=== PATIENT | female | born 1930 | race Hispanic/Latino ===

== ENCOUNTER 2018-04-29 13:45 | Inpatient (IN) | payer MEDICARE ==
[2018-04-29] MEDS ORDERED: Sodium Chloride 0.9% 500 ML IV STA (14:24)
--- NOTE | 2018-04-29 14:49 | RAD ---
Date of service: 04/29/2018 HISTORY: fatigue COMPARISON: No prior. FINDINGS: LUNGS: No active pulmonary disease. PLEURA: No significant pleural effusion identified, no pneumothorax apparent. CARDIOVASCULAR: Severe cardiomegaly and moderate vascular congestion OSSEOUS STRUCTURES: No significant abnormalities. VISUALIZED UPPER ABDOMEN: Normal. OTHER FINDINGS: None. IMPRESSION: Severe cardiomegaly and moderate vascular congestion
--- NOTE | 2018-04-29 14:50 | ED PDOC ---
Arrival/HPI - General Chief Complaint: Altered Mental Status Time Seen by Provider: 04/29/18 14:11 Historian: Patient - History of Present Illness Narrative History of Present Illness (Text): 04/29/18 14:50 87 year old female, with no significant past medical history, presents to the emergency department via EMS complaining of decreased PO intake since past week. As per EMS, patient pressed her medic/life support alert and was found in bed covered in feces in a dirty home. Patient states she cannot take care of herself and has been experiencing decreased appetite prompting her to present to the emergency department for medical evaluation. Patient informs compliance with her medication. Patient is a poor historian but denies any chest pain, shortness of breath, abdominal pain, headache or fall. ROS limited secondary to poor history provided by patient. PMD: Dr. Purvis 04/29/18 15:52 Time/Duration: < week Symptom Onset: Gradual Symptom Course: Unchanged Activities at Onset: Light Context: Home Past Medical History - Provider Review Nursing Documentation Reviewed: Yes - Infectious Disease Hx of Infectious Diseases: None - Reproductive Menopause: Yes - Psychiatric Hx Substance Use: No - Anesthesia Hx Anesthesia: No Family/Social History - Physician Review Nursing Documentation Reviewed: Yes Family/Social History: No Known Family HX Smoking Status: Unknown If Ever Smoked Hx Alcohol Use: No Hx Substance Use: No Allergies/Home Meds Allergies/Adverse Reactions: Allergies No Known Allergies Allergy (Unverified 04/29/18 14:20) Review of Systems - Review of Systems Systems not reviewed;Unavailable: Other (Poor historian) Respiratory: absent: SOB Cardiovascular: absent: Chest Pain Gastrointestinal: Appetite Changes. absent: Abdominal Pain Neurological: absent: Headache Physical Exam Vital Signs Reviewed: Yes Vital Signs Temp Pulse Resp BP Pulse Ox 04/29/18 19:28 128 H 18 155/71 H 04/29/18 14:14 97.5 F L 101 H 18 174/102 H 96 Temperature: Afebrile Blood Pressure: Hypertensive Pulse: Tachycardic Respiratory Rate: Normal Appearance: Positive for: Unkept Pain Distress: None Mental Status: Positive for: Alert and Oriented X 3 - Systems Exam Head: Present: Atraumatic, Normocephalic Pupils: Present: PERRL Extroacular Muscles: Present: EOMI Conjunctiva: Present: Normal Mouth: Present: Dry Neck: Present: Normal Range of Motion Respiratory/Chest: Present: Clear to Auscultation, Decreased Breath Sounds ( decreased air entry). No: Respiratory Distress, Accessory Muscle Use Cardiovascular: Present: Normal S1, S2, Irregular Rhythm (irregularly irregular) . No: Murmurs Abdomen: No: Tenderness, Distention, Peritoneal Signs Back: Present: Normal Inspection Upper Extremity: Present: Normal Inspection. No: Cyanosis, Edema Lower Extremity: Present: Edema (2+ pitting edema bilaterally with erythema) Neurological: Present: GCS=15, CN II-XII Intact, Speech Normal Skin: Present: Warm, Dry, Normal Color. No: Rashes Psychiatric: Present: Alert, Oriented x 3, Normal Insight, Normal Concentration Medical Decision Making ED Course and Treatment: 04/29/18 14:59 Impression: 87 year old female presents to the emergency department complaining of decreased PO intake. Plan: -- ABG -- CT of Head -- Labs -- CXR -- IV Fluids -- Blood Culture -- Urine Culture -- UA -- Reassess and disposition Prior Visits: Notes and results from previous visits were reviewed. IVF ordered because patient appears dehydrated clinically and admits to decreased po intake. Progress Notes: 04/29/18 15:00 ABG shows ph 7.32 with pc02 63. Lethargic but arousable. Likely chronic. Chest X-ray reviewed by radiologist, shows severe cardiomegaly and moderate vascular congestion. 04/29/18 15:21 CT of head reviewed by radiologist, shows moderate atrophy. No acute findings 04/29/18 16:02 Lasix ordered. Heart rate increasing and cardizem ordered. 04/29/18 19:42 EKG shows afrib at 132bpm with non-specific st changes. No prior for comparison. Trop 0.07. Aspirin given rectally. 04/29/18 19:43 04/29/18 19:50 Will need SW due to inability to take care of herself. 04/29/18 19:53 Spoke to resident non destructive testing scientist and Dr. Hernandez, who are aware and agree with Emergency department management plan, accept patient under Dr. Hernandez's service. 04/29/18 21:32 - Lab Interpretations Lab Results: 04/29/18 18:12 04/29/18 17:57 Lab Results 04/29/18 19:15: Urine Color Brown, Urine Appearance Cloudy, Urine pH 6.5, Ur Specific [place] >= 1.030, Urine Protein >=300 H, Urine Glucose (UA) Negative, Urine Ketones Trace H, Urine Blood Large H, Urine Nitrate Positive H, Urine Bilirubin Moderate H, Urine Urobilinogen 1.0 H, Ur Leukocyte Esterase Trace H, Urine RBC Tntc, Urine WBC 1 - 3, Ur Epithelial Cells 0 - 2, Urine Bacteria Mod 04/29/18 18:56: Digoxin 0.9 04/29/18 18:56: PT 48.2 H, INR 4.11 H*, APTT 45.7 H 04/29/18 18:12: WBC 10.5, RBC 5.01, Hgb 13.8, Hct 43.5, MCV 86.8, MCH 27.5, MCHC 31.7, RDW 16.6 H, Plt Count 203, MPV 10.1, Gran % 85.4 H, Lymph % (Auto) 4.8 L, [place] % (Auto) 9.6 H, Eos % (Auto) 0.1 L, Baso % (Auto) 0.1, Gran # 8.97 H , Lymph # (Auto) 0.5 L, [place] # (Auto) 1.0 H, Eos # (Auto) 0.0, Baso # (Auto) 0.01, Neutrophils % (Manual) 85 H, Band Neutrophils % 2, Lymphocytes % (Manual) 8 L, Monocytes % (Manual) 3, Nucleated RBC % 2, Platelet Evaluation Normal, Anisocytosis (manual) 1+ 04/29/18 17:57: Free T4 0.96, TSH 3rd Generation 1.33 04/29/18 17:57: Sodium 139, Potassium 5.2 H, Chloride 104, Carbon Dioxide 29, Anion Gap 11, BUN 37 H, Creatinine 0.8, Est GFR ( Amer) > 60, Est GFR ( Non-Af Amer) > 60, Random Glucose 109, Calcium 8.8, Phosphorus 4.8 H, Magnesium 1.9, Total Bilirubin 0.9, AST 40 H, ALT 31, Alkaline Phosphatase 74, Total Creatine Kinase 42, Troponin I 0.07, NT-Pro-B Natriuret Pep 5110 H, Total Protein 6.4, Albumin 3.4, Globulin 3.0, Albumin/Globulin Ratio 1.1 04/29/18 15:35: pCO2 63 H, pO2 85.0, HCO3 32.5 H, ABG pH 7.32 L, ABG Total CO2 34.4 H, ABG O2 Saturation 97.7, ABG O2 Content 19.1, ABG Base Excess 4.3 H, ABG Hemoglobin 14.4, ABG Carboxyhemoglobin 3.0 H, POC ABG HHb (Measured) 2.2, ABG Methemoglobin 0.8, ABG O2 Capacity 19.5, Hgb O2 Saturation 94.0 L, FiO2 36.0 04/29/18 14:50: POC Glucose (mg/dL) 138 H - RAD Interpretation Radiology Orders: 04/29/18 14:20 CHEST PORTABLE [RAD] Stat 04/29/18 14:24 HEAD W/O CONTRAST [CT] Stat - Medication Orders Current Medication Orders: Haloperidol Lactate (Haldol) 2 mg IM Q4 PRN; Protocol PRN Reason: Agitation Sodium Chloride (Sodium Chloride 0.9%) 1,000 mls @ 50 mls/hr IV .Q20H ANDRA Ceftriaxone Sodium (Rocephin 1 Gram Ivpb) 1 gm in 100 mls @ 100 mls/hr IVPB DAILY ANDRA PRN Reason: Protocol Stop: 05/05/18 10:01 Discontinued Medications Aspirin (Aspirin Chewable) 81 mg PO STAT STA Stop: 04/29/18 15:20 Last Admin: 04/29/18 19:20 Dose: Not Given Non-Admin Reason: NPO Aspirin (Aspirin Chewable) 243 mg PO STAT STA Stop: 04/29/18 18:56 Last Admin: 04/29/18 19:21 Dose: Not Given Non-Admin Reason: NPO Aspirin (Aspirin Supp) 300 mg RC STAT STA Stop: 04/29/18 19:22 Diltiazem HCl (Cardizem) 10 mg IVP STAT STA Stop: 04/29/18 19:30 Furosemide (Lasix) 80 mg IVP STAT STA Stop: 04/29/18 18:54 Sodium Chloride (Sodium Chloride 0.9%) 500 mls @ 999 mls/hr IV .Q31M STA Stop: 04/29/18 14:54 Last Admin: 04/29/18 15:00 Dose: 999 mls/hr eMAR Start Stop Document 04/29/18 15:00 HI (Rec: 04/29/18 19:20 OH [id number]) Intravenous Solution Start Date 04/29/18 Start Time 15:00 Ceftriaxone Sodium (Rocephin 1 Gram Ivpb) 1 gm in 100 mls @ 200 mls/hr IVPB STAT STA Stop: 04/29/18 20:23 - Scribe Statement The provider has reviewed the documentation as recorded by the Scribe Eligio Martins. All medical record entries made by the Scribe were at my direction and personally dictated by me. I have reviewed the chart and agree that the record accurately reflects my personal performance of the history, physical exam, medical decision making, and the department course for this patient. I have also personally directed, reviewed, and agree with the discharge instructions and disposition. Disposition/Present on Arrival - Present on Arrival Any Indicators Present on Arrival: No History of DVT/PE: No History of Uncontrolled Diabetes: No Urinary Catheter: No History of Decub. Ulcer: No History Surgical Site Infection Following: None - Disposition Have Diagnosis and Disposition been Completed?: Yes Diagnosis: CHF (congestive heart failure), Rapid atrial fibrillation, UTI (urinary tract infection), Altered mental status, Failure to thrive, Cellulitis, Edema leg Disposition: HOSPITALIZED Disposition Time: 19:50 Patient Plan: Admission Patient Problems: Current Active Problems Problem Status Onset CHF (congestive heart failure) Acute Rapid atrial fibrillation Acute UTI (urinary tract infection) Acute Altered mental status Acute Failure to thrive Acute Cellulitis Acute Edema leg Acute Condition: FAIR
--- NOTE | 2018-04-29 15:12 | CT ---
Date of service: 04/29/2018 PROCEDURE: CT HEAD WITHOUT CONTRAST. HISTORY: lethargy COMPARISON: None available. TECHNIQUE: Axial computed tomography images were obtained through the head/brain without intravenous contrast. Radiation dose: Total exam DLP = 869 mGy-cm. This CT exam was performed using one or more of the following dose reduction techniques: Automated exposure control, adjustment of the mA and/or kV according to patient size, and/or use of iterative reconstruction technique. FINDINGS: HEMORRHAGE: No intracranial hemorrhage. BRAIN: No mass effect or edema. Moderate atrophy. No acute findings VENTRICLES: Unremarkable. No hydrocephalus. CALVARIUM: Unremarkable. PARANASAL SINUSES: Unremarkable as visualized. No significant inflammatory changes. MASTOID AIR CELLS: Unremarkable as visualized. No inflammatory changes. OTHER FINDINGS: None. IMPRESSION: Moderate atrophy. No acute findings
[2018-04-29 15:45] LABS: ARTERIAL BLOOD GAS HCO3 32.5 mmol/L (21-28); ARTERIAL BLOOD GAS HEMOGLOBIN 14.4 g/dL (11.7-17.4); ARTERIAL BLOOD GAS O2 CAPACITY 19.5 mL/dl (16-24); ARTERIAL BLOOD GAS O2 CONTENT 19.1 ML/dl (15-23); ARTERIAL BLOOD GAS O2 SAT 97.7 % (95-98); ARTERIAL BLOOD GAS PCO2 63 mm/Hg (35-45); ARTERIAL BLOOD GAS PH 7.32 (7.35-7.45); ARTERIAL BLOOD GAS TCO2 34.4 mmol.L (22-28)
[2018-04-29 18:16] LABS: BASO # 0.01 K/mm3 (0.0-2.0); BASO % 0.1 % (0.0-3.0); EOS % 0.1 % (1.5-5.0); GRAN # 8.97 (1.4-6.5); GRAN % 85.4 % (50.0-68.0); HEMOGLOBIN 13.8 g/dL (12.0-16.0); LYMPH # 0.5 (1.2-3.4); LYMPH % 4.8 % (22.0-35.0); MEAN CELL VOLUME 86.8 fl (80.0-105.0); MEAN CORPUSCULAR HEMOGLOBIN 27.5 pg (25.0-35.0); MEAN CORPUSCULAR HGB CONC 31.7 g/dl (31.0-37.0); MEAN PLATELET VOLUME 10.1 fl (7.0-11.0); MONO % 9.6 % (1.0-6.0); PLATELET COUNT 203 10^3/uL (120.0-450.0); RBC 5.01 10^6/uL (3.5-6.1); RED CELL DISTRIBUTION WIDTH 16.6 % (11.5-14.5); WHITE BLOOD COUNT 10.5 10^3/ul (4.5-11.0)
[2018-04-29 18:36] LABS: ALB/GLOB RATIO 1.1 (1.1-1.8); ALBUMIN 3.4 g/dL (3.0-4.8); ALT/SGPT 31 U/L (7-56); AST/SGOT 40 U/L (14-36); BLOOD UREA NITROGEN 37 mg/dL (7-21); CALCIUM 8.8 mg/dL (8.4-10.5); GFR NON-AFRICAN AMERICAN > 60
[2018-04-29 18:48] LABS: B-TYPE NATRIURETIC PEPTIDE 5110 pg/mL (0-450); TROPONIN I 0.07 ng/mL
[2018-04-29 18:53] LABS: FREE T4 0.96 ng/dL (0.78-2.19)
[2018-04-29 18:55] LABS: BAND 2 % (0-2); LYMPHOCYTE 8 % (22.0-35.0); NUCLEATED RED BLOOD CELL 2 %; PLATELET ESTIMATE NORMAL (NORMAL)
[2018-04-29 18:56] LABS: ANISOCYTOSIS 1+; MONOCYTE 3 % (1.0-6.0); NEUTROPHIL 85 % (50.0-70.0)
[2018-04-29 19:27] LABS: PARTIAL THROMBOPLASTIN TIME 45.7 Seconds (25.1-36.5); PROTHROMBIN TIME 48.2 SECONDS (9.4-12.5)
[2018-04-29 19:30] LABS: PH,URINE 6.5 (4.7-8.0); URINE BILIRUBIN MODERATE (NEGATIVE); URINE BLOOD LARGE (NEGATIVE); URINE GLUCOSE (UA) NEGATIVE (NEGATIVE); URINE LEUKOCYTE ESTERASE TRACE Leu/uL (NEGATIVE); URINE PROTEIN >=300 mg/dL (<30 mg/dL)
[2018-04-29 19:39] LABS: INR 4.11
[2018-04-29] MEDS ORDERED: cefTRIAXone (Rocephin) 1 gm Inj IVPB STA (19:52)
[2018-04-29 19:54] LABS: URINE APPEARANCE CLOUDY (CLEAR); URINE COLOR BROWN (YELLOW)
[2018-04-29] MEDS ORDERED: cefTRIAXone 1 GM/100 ML BAG IVPB STA (19:54)
[2018-04-29 19:55] LABS: URINE RBC TNTC /hpf (0-2)
[2018-04-29 19:56] LABS: URINE BACTERIA MOD (NEG); URINE EPITHELIAL CELLS 0 - 2 /hpf (0-5)
[2018-04-29] MEDS ORDERED: Sodium Chloride 0.9% 1,000 ML IV SCH (21:15)
[2018-04-29] MEDS ORDERED: Digoxin 500 mcg/2ml (0.5 mg/2ml) Inj IVP STA (22:50)
--- NOTE | 2018-04-30 01:29 | CP.PCM.HP ---
<Taylor Portillo - Last Filed: 04/30/18 04:19> History of Present Illness - History of Present Illness History of Present Illness: Taylor Portillo, PGY-1 H&P for Hospitalist Service This is a 87 year old female presenting to to the ED via EMS with AMS and decreased oral take. Per EMS, patient pressed life support alert and EMS responded and found patient to be covered in feces. Patient lives by herself. She is currently altered and is unable to provide any history at this time. No previous medical history is available in chart review. 12 point ROS unavailable due to lethargic but arousable patient. In ED, EKG showed afib at 132bpm with no ST changes. No prior EKG available for comparison. Trop 0.07. Aspirin given rectally. ABG shows pH 7.32 with pC02 63. CXR showed severe cardiomegaly and moderate vascular congestion. CT of head shows moderate atrophy. No acute findings. Cardizem given for elevated HR. Lasix and digoxin given. BNP was 5110. PT/INR was 48.2/4.11. U/A positive for leuk esterase and nitrates; given rocephin. [facility] PMD: Dr. Purvis Present on Admission - Present on Admission Any Indicators Present on Admission: No Past Patient History - Infectious Disease Hx of Infectious Diseases: None - Past Social History Smoking Status: Unknown If Ever Smoked - PSYCHIATRIC Hx Substance Use: No - ANESTHESIA Hx Anesthesia: No Meds Allergies/Adverse Reactions: Allergies Allergy/AdvReac Type Severity Reaction Status Date / Time No Known Allergies Allergy Unverified 04/29/18 14:20 Physical Exam - Constitutional Appears: Unkempt Additional comments: lethargic - Head Exam Head Exam: ATRAUMATIC, NORMAL INSPECTION - Eye Exam Eye Exam: EOMI Pupil Exam: PERRL - ENT Exam ENT Exam: Mucous Membranes Dry - Respiratory Exam Respiratory Exam: Decreased Breath Sounds, Wheezes. absent: Accessory Muscle Use, Respiratory Distress - Cardiovascular Exam Cardiovascular Exam: Tachycardia, Irregular Rhythm, +S1, +S2 - GI/Abdominal Exam GI & Abdominal Exam: Normal Bowel Sounds. absent: Firm, Guarding - Extremities Exam Extremities exam: Positive for: normal inspection. Negative for: calf tenderness - Neurological Exam Neurological exam: Altered Additional comments: not oriented to person, time or place. Arousable but drowsy/lethargic - Skin Skin Exam: Dry, Normal Color, Warm Results - Vital Signs Recent Vital Signs: Last Vital Signs Temp 97.5 F L 04/29/18 14:14 Pulse 99 H 04/29/18 22:31 Resp 20 04/29/18 22:31 BP 130/89 04/29/18 22:31 Pulse Ox 96 04/29/18 22:31 - Labs Result Diagrams: 04/29/18 18:12 04/29/18 17:57 Labs: Laboratory Results - last 24 hr 04/29/18 22:43 Grp A Beta Strep Ag Negative Assessment & Plan - Assessment and Plan (Free Text) Assessment: This is a 87 year old female presenting to to the ED via EMS with AMS and decreased oral take. Per EMS, patient pressed life support alert and EMS responded and found patient to be covered in feces. Will be admitted to tele for AMS 2/2 afib with RVR vs CHF exacerbation vs dehydration vs UTI. Will need records from Dr. Purvis's office in AM. Plan: AMS -2/2 afib with RVR vs CHF exacerbation vs dehydration vs UTI -aspiration precautions -carlos catheter -haloperidol prn for agitation -restraints for pulling out peripheral lines -swallow/speech eval -stict I/O -fall precautions -P.T. pending CHF exacerbation -CXR shows severe cardiomegaly, moderate vascular congestion -BNP is 5110 -echo pending -received 80mg lasix in ED -lasix 40mg IVP daily Afib with RVR -EKG on admission showed afib at 132bpm with no ST changes -cardizem q6 prn, currently not tachy -unable to calculate CHADS-Vasc score with unknown history and altered patient -patient on coumadin at home per patient -PT/INR is 48.2/4.11. Supratheruapeutic -digoxin level WNL -will receive digoxin in AM -troponin trending Dehydration -light hydration with NS @50cc UTI -positive leuk esterase, nitrates, protein, trace ketones, large blood -currently on recephin -urine, blood, throat culture -patient will be advised to follow up abnormal U/A with urologist Failure to thrive -patient lives by herself, unable to care for herself -social consult PPX with pepcid. Hold DVT ppx for supratherapeutic INR Patient seen and case discussed with attending, Taylor Fournier, PGY-1 <Rajinder Pichardo - Last Filed: 04/30/18 06:13> Results - Vital Signs Recent Vital Signs: Last Vital Signs Temp 97.3 F L 04/30/18 00:53 Pulse 118 H 04/30/18 02:00 Resp 20 04/30/18 00:53 BP 134/71 04/30/18 00:53 Pulse Ox 96 04/29/18 22:31 - Labs Result Diagrams: 04/29/18 18:12 04/29/18 17:57 Labs: Laboratory Results - last 24 hr 04/29/18 04/30/18 22:43 01:45 Troponin I 0.06 Grp A Beta Strep Ag Negative Attending/Attestation - Attestation I have personally seen and examined this patient.: Yes I have fully participated in the care of the patient.: Yes I have reviewed all pertinent clinical information: Yes Notes (Text): hold lasix for 24 to 48 hours. Fluid retriction to 2000 cc/24 hours 04/30/18 06:12
[2018-04-30 02:56] VITALS: BMI 30.9
[2018-04-30] MEDS ORDERED: Digoxin 500 mcg/2ml (0.5 mg/2ml) Inj IVP ONE (08:00)
[2018-04-30 09:16] LABS: EOS % 0.3 % (1.5-5.0); GRAN # 7.62 (1.4-6.5); GRAN % 84.7 % (50.0-68.0); HEMOGLOBIN 12.9 g/dL (12.0-16.0); LYMPH # 0.8 (1.2-3.4); MEAN CELL VOLUME 88.1 fl (80.0-105.0); MEAN CORPUSCULAR HGB CONC 30.7 g/dl (31.0-37.0); MEAN PLATELET VOLUME 9.9 fl (7.0-11.0); MONO # 0.5 (0.1-0.6); RBC 4.77 10^6/uL (3.5-6.1); RED CELL DISTRIBUTION WIDTH 16.8 % (11.5-14.5)
[2018-04-30 09:20] LABS: ALBUMIN 3.1 g/dL (3.0-4.8); BLOOD UREA NITROGEN 36 mg/dL (7-21); CALCIUM 8.4 mg/dL (8.4-10.5); GFR NON-AFRICAN AMERICAN > 60; HDL CHOLESTEROL 27 mg/dL (29-60)
[2018-04-30 09:22] LABS: ALT/SGPT 30 U/L (7-56); AST/SGOT 38 U/L (14-36)
[2018-04-30 09:30] LABS: PROTHROMBIN TIME 49.2 SECONDS (9.4-12.5)
[2018-04-30 09:31] LABS: LDL CHOLESTEROL 60 mg/dL (0-129)
[2018-04-30 09:34] LABS: TROPONIN I 0.07 ng/mL
[2018-04-30] MEDS: cefTRIAXone 1 gm 1 GM/100 ML BAG IVPB SCH (09:36)
[2018-04-30 09:50] LABS: INR 4.16
[2018-04-30] MEDS ORDERED: Metoprolol 1 mg/ml Inj IVP PRN (11:05)
[2018-04-30] MEDS: diltiaZEM IVPB 100mg in NS 100 ML IV PRN (12:04)
--- NOTE | 2018-04-30 14:02 | CARD ---
APPROVED REPORT Date of service: 04/29/2018 EKG Measurement Heart [id number] <Conclusion> Poor data quality, interpretation may be adversely affected Atrial fibrillation with rapid ventricular response RSR' or QR pattern in V1 suggests right ventricular conduction delay ST & T wave abnormality, consider inferolateral ischemia or digitalis effect Abnormal ECG
--- NOTE | 2018-04-30 14:16 | CARD ---
APPROVED REPORT Date of service: 04/30/2018 EXAM: Two-dimensional and M-mode echocardiogram with Doppler and color Doppler. INDICATION Atrial Fibrillation 2D DIMENSIONS Left Atrium (2D)4.3 (1.6-4.0cm)IVSd1.5 (0.7-1.1cm) LVDd3.8 (3.9-5.9cm)PWd1.1 (0.7-1.1cm) LVDs2.4 (2.5-4.0cm)FS (%) 35.8 % LVEF (%)66.1 (>50%) M-Mode DIMENSIONS Aortic Root3.00 (2.2-3.7cm)Aortic Cusp Exc.0.40 (1.5-2.0cm) Aortic Valve AoV Peak Qhtkvzdh931.0cm/sAoV VTI62.6cmAO Peak GR.61mmHg LVOT Peak Mvrpzrwo67.9cm/sLVOT VTI15.40cmAO Mean GR.24mmHg Mitral Valve E/A ratio0.0 TDI E/Lateral E'0.0E/Medial E'0.0 Tricuspid Valve TR Peak [id number] [id number] Peak Gr.66mmHg [id number] LEFT VENTRICLE The left ventricle is normal size. There is mild concentric left ventricular hypertrophy. The left ventricular function is normal. The left ventricular ejection fraction is within the normal range. There is normal LV segmental wall motion. RIGHT VENTRICLE The right ventricle is normal size. The right ventricle is mildly hypertrophied. The right ventricular systolic function is normal. ATRIA The left atrium is mildly dilated. The right atrium is moderately dilated. AORTIC VALVE The aortic valve is moderately calcified. There is moderate to severe valvular aortic stenosis. MITRAL VALVE The mitral valve leaflets are thickened and calcified. There is no mitral valve regurgitation noted. There is no mitral valve stenosis. TRICUSPID VALVE There is severe tricuspid regurgitation. There is severe pulmonary hypertension. GREAT VESSELS The aortic root is normal in size. The IVC is normal in size and collapses >50% with inspiration. PERICARDIAL EFFUSION There is moderate left pleural effusion. There is a trace circumferential pericardial effusion. <Conclusion> The left ventricle is normal size. There is mild concentric left ventricular hypertrophy. The left ventricular function is normal. The left ventricular ejection fraction is within the normal range. There is normal LV segmental wall motion. There is moderate to severe valvular aortic stenosis. There is severe tricuspid regurgitation. There is severe pulmonary hypertension.
[2018-04-30] MEDS: Ammonium Lactate 12% Lotion (225 g) EXT SCH (18:17)
[2018-05-01] MEDS: diltiaZEM IVPB 100mg in NS 100 ML IV PRN (04:04)
[2018-05-01 07:26] LABS: BASO # 0.01 K/mm3 (0.0-2.0); BASO % 0.1 % (0.0-3.0); EOS # 0.1 (0.0-0.7); EOS % 0.7 % (1.5-5.0); GRAN # 5.61 (1.4-6.5); GRAN % 73.6 % (50.0-68.0); HEMOGLOBIN 12.4 g/dL (12.0-16.0); LYMPH # 0.6 (1.2-3.4); LYMPH % 8.1 % (22.0-35.0); MEAN CELL VOLUME 90.7 fl (80.0-105.0); MEAN CORPUSCULAR HEMOGLOBIN 26.8 pg (25.0-35.0); MEAN CORPUSCULAR HGB CONC 29.5 g/dl (31.0-37.0); MEAN PLATELET VOLUME 9.8 fl (7.0-11.0); MONO # 1.3 (0.1-0.6); MONO % 17.5 % (1.0-6.0); RBC 4.63 10^6/uL (3.5-6.1); WHITE BLOOD COUNT 7.6 10^3/ul (4.5-11.0)
[2018-05-01 07:35] LABS: INR 3.48; PARTIAL THROMBOPLASTIN TIME 45.3 Seconds (25.1-36.5); PROTHROMBIN TIME 41.1 SECONDS (9.4-12.5)
[2018-05-01 07:51] LABS: ALBUMIN 2.9 g/dL (3.0-4.8); ALT/SGPT 25 U/L (7-56); AST/SGOT 32 U/L (14-36); BLOOD UREA NITROGEN 30 mg/dL (7-21); CALCIUM 8.3 mg/dL (8.4-10.5); GFR NON-AFRICAN AMERICAN > 60
[2018-05-01] MEDS: cefTRIAXone 1 gm 1 GM/100 ML BAG IVPB SCH (09:57)
[2018-05-01] MEDS: Ammonium Lactate 12% Lotion (225 g) EXT SCH ×2 (10:56→17:24)
--- NOTE | 2018-05-01 13:39 | CP.PCM.PN ---
<Linwood Short - Last Filed: 05/01/18 13:43> Subjective - Date & Time of Evaluation Date of Evaluation: 05/01/18 Time of Evaluation: 07:00 - Subjective Subjective: Pt seen and examined this morning at bedside. Pt denies SOB or chest pain. Objective - Vital Signs/Intake and Output Vital Signs (last 24 hours): Temp Pulse Resp BP Pulse Ox 97.8 F 124 H 20 125/66 98 05/01/18 12:00 05/01/18 12:11 05/01/18 12:00 05/01/18 12:11 05/01/18 06:00 Intake and Output: 05/01/18 05/01/18 06:59 18:59 Intake Total 200 Balance 200 - Medications Medications: Current Medications Digoxin (Lanoxin) 0.25 mg PO 1400 [facility] Diltiazem HCl (Cardizem) 10 mg IVP Q6H PRN PRN Reason: Heart rate Famotidine (Pepcid) 20 mg IVP DAILY [facility] Last Admin: 05/01/18 09:57 Dose: 20 mg Furosemide (Lasix) 40 mg IVP Q12 [facility] Last Admin: 05/01/18 09:58 Dose: 40 mg Haloperidol Lactate (Haldol) 2 mg IM Q4 PRN; Protocol PRN Reason: Agitation Ceftriaxone Sodium (Rocephin 1 Gram Ivpb) 1 gm in 100 mls @ 100 mls/hr IVPB DAILY [facility] PRN Reason: Protocol Stop: 05/05/18 10:01 Last Admin: 05/01/18 09:57 Dose: 100 mls/hr diltiaZEM IVPB 100mg in NS (Cardizem 100mg In Ns) 100 mls @ 5 mls/hr IV .Q20H PRN; Protocol; 5 MG/HR PRN Reason: TITRATE PER MD ORDER Last Admin: 05/01/18 04:04 Dose: 5 mg/hr, 5 mls/hr Lactic Acid (Lac-Hydrin 12% Lotion (225 G)) 0 gm EXT BID [facility] Last Admin: 05/01/18 10:56 Dose: 1 appful Metoprolol Tartrate (Lopressor) 5 mg IVP Q6H PRN PRN Reason: hr>130 Metoprolol Tartrate (Lopressor) 25 mg PO BID [facility] Last Admin: 05/01/18 12:11 Dose: 25 mg Warfarin Sodium (Coumadin) 1.25 mg PO 1800 [facility] PRN Reason: Protocol - Labs Labs: 05/01/18 06:45 05/01/18 06:45 PT 41.1 SECONDS (9.4-12.5) H 05/01/18 06:45 INR 3.48 05/01/18 06:45 APTT 45.3 Seconds (25.1-36.5) H 05/01/18 06:45 - Constitutional Appears: No Acute Distress - Head Exam Head Exam: ATRAUMATIC, NORMOCEPHALIC - Respiratory Exam Respiratory Exam: Clear to Ausculation Bilateral, NORMAL BREATHING PATTERN. absent: Accessory Muscle Use - Cardiovascular Exam Cardiovascular Exam: Tachycardia, Irregular Rhythm - GI/Abdominal Exam GI & Abdominal Exam: Soft, Normal Bowel Sounds. absent: Tenderness - Extremities Exam Extremities Exam: absent: Calf Tenderness - Neurological Exam Neurological Exam: Alert, Awake, Oriented x3 - Psychiatric Exam Psychiatric exam: Normal Affect, Normal Mood Assessment and Plan - Assessment and Plan (Free Text) Assessment: Pt is an 87 yo female with a PMH of atrial fibrillation, HTN, hypothyroid, and macular degeneration who presented to the ED via EMS after finding her in her covered in her own after she activated her life support alert. Plan: AMS - UTI, UA: protein, trace ketones, blood large, nitrate positive, LE trace - CT Head: moderate atrophy, no acute findings - aspiration precautions, fall precautions - haloperidol prn for agitation - swallow eval: recommends regular thin liquid diet - PT: recommends MOISES - blood cultures: negative UTI - UA: protein, trace ketones, blood large, nitrate positive, LE trace - continue rocephin 1 gram daily - Urine culture: No growth CHF - BNP is 5000 - ECHO: EF 66%, severe - lasix 40mg IVP BID Atrial Fibrillation, with RVR - cardizem 10 IVP q6 prn - lopressor 5mg IVP - metoprolol tartrate 25mg BID - digoxin 0.25mg - start 1.25 warfarin - INR 3.48, will recheck tomorrow morning Failure to thrive - pt lives by herself, unable to care for herself - social consult - case management Ppx - pepcid Pt seen, examined, assessment, plan discussed with Dr Indio Short PGY1 <Ashtyn Borjas - Last Filed: 05/04/18 18:44> Objective - Vital Signs/Intake and Output Vital Signs (last 24 hours): Temp Pulse Resp BP Pulse Ox 97.3 F L 82 19 108/63 97 05/04/18 17:56 05/04/18 18:00 05/04/18 17:56 05/04/18 17:56 05/04/18 09:00 Intake and Output: 05/04/18 05/04/18 06:59 18:59 Intake Total 0 Output Total 300 Balance -300 - Medications Medications: Current Medications Albuterol/Ipratropium (Duoneb 3 Mg/0.5 Mg (3 Ml) Ud) 3 ml IH [id number] [facility] Last Admin: 05/04/18 11:33 Dose: 3 ml Albuterol/Ipratropium (Duoneb 3 Mg/0.5 Mg (3 Ml) Ud) 3 ml IH Q2H PRN PRN Reason: Shortness of Breath Cefpodoxime Proxetil (Vantin) 200 mg PO Q12 [facility] Stop: 05/05/18 10:01 Last Admin: 05/03/18 09:57 Dose: Not Given Digoxin (Digoxin) 0.125 mg PO 1400 [facility] Last Admin: 05/04/18 14:41 Dose: 0.125 mg Famotidine (Pepcid) 20 mg IVP DAILY [facility] Last Admin: 05/04/18 09:45 Dose: 20 mg Furosemide (Lasix) 40 mg IVP BID [facility] Last Admin: 05/04/18 17:56 Dose: 40 mg Haloperidol Lactate (Haldol) 2 mg IM Q4 PRN; Protocol PRN Reason: Agitation Ceftriaxone Sodium (Rocephin 1 Gram Ivpb) 1 gm in 100 mls @ 100 mls/hr IVPB DAILY [facility] PRN Reason: Protocol Last Admin: 05/04/18 09:45 Dose: 100 mls/hr Lactic Acid (Lac-Hydrin 12% Lotion (225 G)) 0 gm EXT BID [facility] Last Admin: 05/04/18 17:56 Dose: 2 appful Magnesium Oxide (Mag-Ox) 400 mg PO BID [facility] Last Admin: 05/04/18 17:55 Dose: 400 mg Methylprednisolone (Solu-Medrol) 40 mg IVP DAILY [facility] Last Admin: 05/04/18 09:47 Dose: 40 mg Metoprolol Tartrate (Lopressor) 50 mg PO BID [facility] Last Admin: 05/04/18 17:56 Dose: 50 mg Warfarin Sodium (Coumadin) 2 mg PO 1800 [facility] PRN Reason: Protocol Last Admin: 05/04/18 17:55 Dose: 2 mg - Labs Labs: 05/04/18 06:00 05/04/18 06:00 PT 20.5 SECONDS (9.4-12.5) H 05/04/18 06:00 INR 1.76 05/04/18 06:00 APTT 42.0 Seconds (25.1-36.5) H 05/02/18 05:30 Attending/Attestation - Attestation I have personally seen and examined this patient.: Yes I have fully participated in the care of the patient.: Yes I have reviewed all pertinent clinical information, including history, physical exam and plan: Yes Notes (Text): 05/04/18 18:44 Medical record note made by the resident after discussion with my direction and input after the patient was personally seen and examined by me. I have reviewed the chart and agree that the record accurately reflects by personal performance of the history, physical exam, data review, and medical decision-making, in the course for the patient. I have also personally directed the plan of care.
[2018-05-01] MEDS ORDERED: Digoxin 250 mcg (0.25 mg) Tab PO SCH (14:00)
--- NOTE | 2018-05-01 19:08 | CON ---
DATE: 05/01/2018 REASON FOR CONSULTATION: Rapid atrial fibrillation and altered mental status. HISTORY: This is an 87-year-old woman who was brought to the emergency room after being found on the floor at home. She had activated a medical alert and when found by EMS, she was noted to be confused and unable to provide any history. She was found lying in feces. She was brought to the emergency room. Her electrocardiogram reveals atrial fibrillation with rapid ventricular response. She was started on IV Cardizem for heart rate control. She was seen lying in bed on telemetry and remains somewhat confused. She is unable to provide further information. She has had no other hospital admissions documented. CURRENT MEDICATIONS: Include IV diltiazem, warfarin, Haldol, digoxin 0.25 mg daily, Lasix 40 mg every 12 hours, metoprolol 25 mg b.i.d., Pepcid, and Rocephin. ALLERGIES: NONE KNOWN. SOCIAL HISTORY: Unobtainable. FAMILY HISTORY: Unobtainable. REVIEW OF SYSTEMS: Unobtainable. PHYSICAL EXAMINATION: GENERAL: She is a very elderly woman who appears confused, but in no distress. VITAL SIGNS: Her blood pressure is 98/60 with pulse of 140 and in atrial fibrillation, respirations 16. She is afebrile. HEENT: Normocephalic and atraumatic. NECK: Supple. CHEST: Diminished breath sounds at the bases. HEART: PMI displaced laterally with an irregularly regular rhythm and rapid rate. Systolic murmur present at the base. ABDOMEN: Soft, nontender, normoactive bowel sounds. EXTREMITIES: No edema. Mild bilateral cellulitic changes noted. PSYCHIATRIC: Unable to fully assess. NEUROLOGIC: Moving all four extremities. DIAGNOSTIC DATA: Potassium 4.5. BUN and creatinine of 30 and 0.8. White count 7.6, hemoglobin and hematocrit 12.4 and 42 with platelet count of 164,000. INR 3.48. Electrocardiogram reveals a large cardiac silhouette with bilateral congestive changes. Electrocardiogram reveals atrial fibrillation with a rapid ventricular response and secondary ST-T changes. Echocardiogram reveals normal LV size with concentric LVH, normal LV systolic function, and moderately severe aortic stenosis with severe tricuspid regurgitation. IMPRESSION: 1. Altered mental status, etiology to be determined. Possible underlying sepsis. 2. Atrial fibrillation with rapid ventricular response, currently on IV diltiazem, oral beta-nancy, and oral digoxin. 3. Moderately severe aortic stenosis. RECOMMENDATIONS: Oral diltiazem will be initiated in place of intravenous diltiazem. Digoxin will be held given her advanced age and potential for digoxin toxicity. Oral beta-nancy therapy will be continued for now. Empiric antibiotics have been given and cultures are pending. Attempts to contact family to establish her resuscitation status advised. Thank you for this consultation. We will be happy to follow along throughout her hospital course and make further recommendations as appropriate. Celestine Truong MD
[2018-05-02 06:30] LABS: BASO # 0.01 K/mm3 (0.0-2.0); BASO % 0.1 % (0.0-3.0); EOS # 0.1 (0.0-0.7); EOS % 0.9 % (1.5-5.0); GRAN # 5.15 (1.4-6.5); GRAN % 69.9 % (50.0-68.0); HEMOGLOBIN 12.7 g/dL (12.0-16.0); INR 2.44; LYMPH # 1.2 (1.2-3.4); LYMPH % 16.6 % (22.0-35.0); MEAN CELL VOLUME 91.2 fl (80.0-105.0); MEAN CORPUSCULAR HEMOGLOBIN 26.7 pg (25.0-35.0); MEAN CORPUSCULAR HGB CONC 29.3 g/dl (31.0-37.0); MEAN PLATELET VOLUME 10.7 fl (7.0-11.0); MONO # 0.9 (0.1-0.6); MONO % 12.5 % (1.0-6.0); PROTHROMBIN TIME 28.6 SECONDS (9.4-12.5); RBC 4.76 10^6/uL (3.5-6.1); RED CELL DISTRIBUTION WIDTH 16.7 % (11.5-14.5); WHITE BLOOD COUNT 7.4 10^3/ul (4.5-11.0)
[2018-05-02 06:41] LABS: ALT/SGPT 23 U/L (7-56); AST/SGOT 31 U/L (14-36); BLOOD UREA NITROGEN 26 mg/dL (7-21); CALCIUM 8.2 mg/dL (8.4-10.5); GFR NON-AFRICAN AMERICAN > 60
--- NOTE | 2018-05-02 08:07 | CP.PCM.PN ---
Subjective - Date & Time of Evaluation Date of Evaluation: 05/02/18 Time of Evaluation: 07:00 - Subjective Subjective: Stable on 2R. No CP or SOB V/S noted. AF, mod VR. PE: Lungs: rhonchi Cor: irreg S1S2, RICHARD Abd.: soft Ext.: no edema Neuro.: alert I/O= 3880/2250 recorded Labs: INR = 2.44, K+= 5.1, Dig.= 0.9 BC X2 NG at 48 hrs. Urine C+S: NG Objective - Vital Signs/Intake and Output Vital Signs (last 24 hours): Temp Pulse Resp BP Pulse Ox 98.6 F 68 19 122/72 96 05/02/18 06:00 05/02/18 06:00 05/02/18 00:01 05/02/18 06:00 05/02/18 00:01 Intake and Output: 05/02/18 05/02/18 06:59 18:59 Intake Total 240 Output Total 350 Balance -110 - Medications Medications: Current Medications Diltiazem HCl (Cardizem) 30 mg PO QID [facility] Last Admin: 05/01/18 22:35 Dose: 30 mg Famotidine (Pepcid) 20 mg PO DAILY [facility] Furosemide (Lasix) 40 mg IVP Q12 [facility] Last Admin: 05/01/18 22:36 Dose: 40 mg Haloperidol Lactate (Haldol) 2 mg IM Q4 PRN; Protocol PRN Reason: Agitation Ceftriaxone Sodium (Rocephin 1 Gram Ivpb) 1 gm in 100 mls @ 100 mls/hr IVPB DAILY [facility] PRN Reason: Protocol Stop: 05/05/18 10:01 Last Admin: 05/01/18 09:57 Dose: 100 mls/hr Lactic Acid (Lac-Hydrin 12% Lotion (225 G)) 0 gm EXT BID [facility] Last Admin: 05/01/18 17:24 Dose: 1 appful Metoprolol Tartrate (Lopressor) 5 mg IVP Q6H PRN PRN Reason: hr>130 Metoprolol Tartrate (Lopressor) 25 mg PO BID [facility] Last Admin: 05/01/18 17:22 Dose: 25 mg Warfarin Sodium (Coumadin) 1.25 mg PO 1800 [facility] PRN Reason: Protocol Last Admin: 05/01/18 17:22 Dose: 1.25 mg - Labs Labs: 05/02/18 05:30 05/02/18 05:30 PT 28.6 SECONDS (9.4-12.5) H 05/02/18 05:30 INR 2.44 05/02/18 05:30 APTT 42.0 Seconds (25.1-36.5) H 05/02/18 05:30 Assessment and Plan - Assessment and Plan (Free Text) Assessment: AMS CHF Coagulopthy on admission AF with RVR , mod. to severe on echo with: Mod/sev. TR and sev. PH UTI Plan: Continue diuresis Continue PO metoprolol and cardizem No warfarin today. Monitor INR daily. Clarify home meds. OOB to chair as lorna. Monitor: labs, I/O, sats., INRs, F/U CXR, etc Social Service Evaluation. Needs protected environment.
--- NOTE | 2018-05-02 09:04 | RAD ---
Date of service: 05/02/2018 HISTORY: chf f/u COMPARISON: 04/29/2018 FINDINGS: LUNGS: There is moderate pulmonary venous congestion. PLEURA: Worsening pleural effusions, larger on the right. No pneumothorax. CARDIOVASCULAR: Persistent severe cardiomegaly. OSSEOUS STRUCTURES: No significant abnormalities. VISUALIZED UPPER ABDOMEN: Normal. OTHER FINDINGS: None. IMPRESSION: Worsening congestive heart failure with worsening pleural effusions, larger on the right.
[2018-05-02] MEDS: Ammonium Lactate 12% Lotion (225 g) EXT SCH ×2 (09:18→18:25)
[2018-05-02] MEDS: Cefpodoxime (Vantin) 200 mg Tab PO SCH ×2 (09:18→21:51)
--- NOTE | 2018-05-02 16:48 | CT ---
Date of service: 05/02/2018 PROCEDURE: CT Chest without contrast HISTORY: CHF COMPARISON: Plain radiographs from 05/02/2018 TECHNIQUE: Contiguous axial images were obtained through the chest without intravenous contrast enhancement. Sagittal and coronal reconstructions were performed. Radiation dose (DLP): 395.44 mGy-cm. This CT exam was performed using one or more of the following dose reduction techniques: Automated exposure control, adjustment of the mA and/or kV according to patient size, and/or use of iterative reconstruction technique. FINDINGS: LUNGS: The lungs are clear. Visualized airway clear. MEDIASTINUM: The aorta is not dilated. There is severe cardiomegaly. There is a moderate pericardial effusion. PLEURA: There are moderate pleural effusions. No pneumothorax. BONES: No fracture. No destructive lesion. There is diffuse bone demineralization and multilevel degenerative changes in the spine. UPPER ABDOMEN: Small perihepatic ascites. OTHER FINDINGS: There is diffuse anasarca. IMPRESSION: Severe cardiomegaly, moderate pericardial effusion and moderate bilateral pleural effusions.
--- NOTE | 2018-05-02 17:01 | CP.PCM.PN ---
<Linwood Short - Last Filed: 05/02/18 17:48> Subjective - Date & Time of Evaluation Date of Evaluation: 05/02/18 Time of Evaluation: 05:00 - Subjective Subjective: Pt seen and examined. Pt denies chest pain, no new complaints at this time. Objective - Vital Signs/Intake and Output Vital Signs (last 24 hours): Temp Pulse Resp BP Pulse Ox 97.7 F 85 18 105/54 L 96 05/02/18 12:00 05/02/18 13:56 05/02/18 12:00 05/02/18 12:00 05/02/18 00:01 Intake and Output: 05/02/18 05/02/18 06:59 18:59 Intake Total 240 Output Total 350 Balance -110 - Medications Medications: Current Medications Cefpodoxime Proxetil (Vantin) 200 mg PO Q12 [facility] Stop: 05/05/18 10:01 Last Admin: 05/02/18 09:18 Dose: 200 mg Diltiazem HCl (Cardizem) 30 mg PO QID [facility] Last Admin: 05/02/18 09:13 Dose: 30 mg Famotidine (Pepcid) 20 mg PO DAILY [facility] Last Admin: 05/02/18 09:12 Dose: 20 mg Furosemide (Lasix) 40 mg IVP Q12 [facility] Last Admin: 05/02/18 09:11 Dose: 40 mg Haloperidol Lactate (Haldol) 2 mg IM Q4 PRN; Protocol PRN Reason: Agitation Lactic Acid (Lac-Hydrin 12% Lotion (225 G)) 0 gm EXT BID [facility] Last Admin: 05/02/18 09:18 Dose: 1 appful Metoprolol Tartrate (Lopressor) 5 mg IVP Q6H PRN PRN Reason: hr>130 Metoprolol Tartrate (Lopressor) 25 mg PO BID [facility] Last Admin: 05/02/18 09:12 Dose: 25 mg Warfarin Sodium (Coumadin) 1.25 mg PO 1800 [facility] PRN Reason: Protocol Last Admin: 05/01/18 17:22 Dose: 1.25 mg - Labs Labs: 05/02/18 05:30 05/02/18 05:30 PT 28.6 SECONDS (9.4-12.5) H 05/02/18 05:30 INR 2.44 05/02/18 05:30 APTT 42.0 Seconds (25.1-36.5) H 05/02/18 05:30 - Constitutional Appears: No Acute Distress - Head Exam Head Exam: ATRAUMATIC, NORMOCEPHALIC - ENT Exam ENT Exam: Mucous Membranes Moist - Respiratory Exam Respiratory Exam: Clear to Ausculation Bilateral, NORMAL BREATHING PATTERN. absent: Accessory Muscle Use - Cardiovascular Exam Cardiovascular Exam: REGULAR RHYTHM, +S1, +S2 - GI/Abdominal Exam GI & Abdominal Exam: Distended, Soft, Normal Bowel Sounds. absent: Tenderness - Extremities Exam Extremities Exam: Pedal Edema. absent: Calf Tenderness Assessment and Plan - Assessment and Plan (Free Text) Assessment: Pt is an 87 yo female with a PMH of atrial fibrillation, HTN, hypothyroid, and macular degeneration who presented to the ED via EMS after finding her in her covered in her own after she activated her life support alert. Plan: Atrial Fibrillation, with RVR - discontinue loressor IVP, discontinue cardizem 10 IVP q6 prn - start 30 cardizem PO QID - metoprolol tartrate 25mg BID - digoxin 0.25mg, per cardio, hold due to pt age and risk of Digoxin toxicity - start 1.25 warfarin, per cardio, hold for today - INR 2.4, will continue to monitor AMS - UTI, UA: protein, trace ketones, blood large, nitrate positive, LE trace - CT Head: moderate atrophy, no acute findings - aspiration precautions, fall precautions - PT: recommends MOISES UTI - UA: protein, trace ketones, blood large, nitrate positive, LE trace - Urine culture: No growth - continue Rocephin 1 gram daily CHF - ECHO: EF 66%, severe - lasix 40mg IVP BID - CXR read as worsening CHF, worsening pleural effusion R>L - Chest CT: severe cardiomegaly, moderate pericardial effusion, moderate B/L pleural effusion Failure to thrive - social consult: pt not interested in LTC, [facility] pending - case management: MOISES when medically stable Ppx - pepcid Pt seen, examined, assessment, plan discussed with Dr Indio Short PGY1 <Ashtyn Borjas - Last Filed: 05/04/18 18:44> Objective - Vital Signs/Intake and Output Vital Signs (last 24 hours): Temp Pulse Resp BP Pulse Ox 97.3 F L 82 19 108/63 97 05/04/18 17:56 05/04/18 18:00 05/04/18 17:56 05/04/18 17:56 05/04/18 09:00 Intake and Output: 05/04/18 05/04/18 06:59 18:59 Intake Total 0 Output Total 300 Balance -300 - Medications Medications: Current Medications Albuterol/Ipratropium (Duoneb 3 Mg/0.5 Mg (3 Ml) Ud) 3 ml IH [id number] [facility] Last Admin: 05/04/18 11:33 Dose: 3 ml Albuterol/Ipratropium (Duoneb 3 Mg/0.5 Mg (3 Ml) Ud) 3 ml IH Q2H PRN PRN Reason: Shortness of Breath Cefpodoxime Proxetil (Vantin) 200 mg PO Q12 [facility] Stop: 05/05/18 10:01 Last Admin: 05/03/18 09:57 Dose: Not Given Digoxin (Digoxin) 0.125 mg PO 1400 [facility] Last Admin: 05/04/18 14:41 Dose: 0.125 mg Famotidine (Pepcid) 20 mg IVP DAILY [facility] Last Admin: 05/04/18 09:45 Dose: 20 mg Furosemide (Lasix) 40 mg IVP BID [facility] Last Admin: 05/04/18 17:56 Dose: 40 mg Haloperidol Lactate (Haldol) 2 mg IM Q4 PRN; Protocol PRN Reason: Agitation Ceftriaxone Sodium (Rocephin 1 Gram Ivpb) 1 gm in 100 mls @ 100 mls/hr IVPB DAILY [facility] PRN Reason: Protocol Last Admin: 05/04/18 09:45 Dose: 100 mls/hr Lactic Acid (Lac-Hydrin 12% Lotion (225 G)) 0 gm EXT BID [facility] Last Admin: 05/04/18 17:56 Dose: 2 appful Magnesium Oxide (Mag-Ox) 400 mg PO BID [facility] Last Admin: 05/04/18 17:55 Dose: 400 mg Methylprednisolone (Solu-Medrol) 40 mg IVP DAILY [facility] Last Admin: 05/04/18 09:47 Dose: 40 mg Metoprolol Tartrate (Lopressor) 50 mg PO BID [facility] Last Admin: 05/04/18 17:56 Dose: 50 mg Warfarin Sodium (Coumadin) 2 mg PO 1800 [facility] PRN Reason: Protocol Last Admin: 05/04/18 17:55 Dose: 2 mg - Labs Labs: 05/04/18 06:00 05/04/18 06:00 PT 20.5 SECONDS (9.4-12.5) H 05/04/18 06:00 INR 1.76 05/04/18 06:00 APTT 42.0 Seconds (25.1-36.5) H 05/02/18 05:30 Attending/Attestation - Attestation I have personally seen and examined this patient.: Yes I have fully participated in the care of the patient.: Yes I have reviewed all pertinent clinical information, including history, physical exam and plan: Yes Notes (Text): 05/04/18 18:44 Medical record note made by the resident after discussion with my direction and input after the patient was personally seen and examined by me. I have reviewed the chart and agree that the record accurately reflects by personal performance of the history, physical exam, data review, and medical decision-making, in the course for the patient. I have also personally directed the plan of care.
--- NOTE | 2018-05-02 20:35 | CARD ---
APPROVED REPORT Date of service: 05/02/2018 EKG Measurement Heart [id number] <Conclusion> Atrial fibrillation with rapid ventricular response RSR' or QR pattern in V1 suggests right ventricular conduction delay ST & T wave abnormality, consider inferior ischemia or digitalis effect Abnormal ECG
[2018-05-03 06:30] LABS: BASO # 0.01 K/mm3 (0.0-2.0); BASO % 0.2 % (0.0-3.0); EOS # 0.1 (0.0-0.7); EOS % 1.7 % (1.5-5.0); GRAN # 4.49 (1.4-6.5); GRAN % 75.9 % (50.0-68.0); HEMOGLOBIN 11.6 g/dL (12.0-16.0); LYMPH # 0.5 (1.2-3.4); LYMPH % 8.3 % (22.0-35.0); MEAN CELL VOLUME 90.8 fl (80.0-105.0); MEAN CORPUSCULAR HEMOGLOBIN 26.7 pg (25.0-35.0); MEAN CORPUSCULAR HGB CONC 29.4 g/dl (31.0-37.0); MEAN PLATELET VOLUME 10.5 fl (7.0-11.0); MONO # 0.8 (0.1-0.6); MONO % 13.9 % (1.0-6.0); RBC 4.34 10^6/uL (3.5-6.1); RED CELL DISTRIBUTION WIDTH 16.7 % (11.5-14.5); WHITE BLOOD COUNT 5.9 10^3/ul (4.5-11.0)
[2018-05-03 06:35] LABS: INR 2.06; PROTHROMBIN TIME 24.1 SECONDS (9.4-12.5)
[2018-05-03 07:14] LABS: ALBUMIN 2.7 g/dL (3.0-4.8); ALT/SGPT 26 U/L (7-56); AST/SGOT 24 U/L (14-36); BLOOD UREA NITROGEN 20 mg/dL (7-21); CALCIUM 7.8 mg/dL (8.4-10.5); GFR NON-AFRICAN AMERICAN > 60
--- NOTE | 2018-05-03 08:28 | CP.PCM.PN ---
Subjective - Date & Time of Evaluation Date of Evaluation: 05/03/18 Time of Evaluation: 07:00 - Subjective Subjective: Stable on 2R. No CP or SOB. Alert. V/S noted. AF, mod VR. PE: Lungs: rhonchi Cor: irreg S1S2, RICHARD Abd.: soft Ext.: no edema Neuro.: alert Labs: INR = 2.06, K+= 3.6, Mg.++ 1.6 BC X2 NG at days Urine C+S: NG Objective - Vital Signs/Intake and Output Vital Signs (last 24 hours): Temp Pulse Resp BP Pulse Ox 98.1 F 100 H 18 93/48 L 95 05/03/18 06:00 05/03/18 06:00 05/03/18 06:00 05/03/18 06:00 05/03/18 06:00 Intake and Output: 05/03/18 05/03/18 06:59 18:59 Intake Total 1440 0 Output Total 500 650 Balance 940 -650 - Medications Medications: Current Medications Cefpodoxime Proxetil (Vantin) 200 mg PO Q12 [facility] Stop: 05/05/18 10:01 Last Admin: 05/02/18 21:51 Dose: 200 mg Famotidine (Pepcid) 20 mg PO DAILY [facility] Last Admin: 05/02/18 09:12 Dose: 20 mg Furosemide (Lasix) 40 mg IVP Q12 [facility] Last Admin: 05/02/18 21:50 Dose: 40 mg Haloperidol Lactate (Haldol) 2 mg IM Q4 PRN; Protocol PRN Reason: Agitation Lactic Acid (Lac-Hydrin 12% Lotion (225 G)) 0 gm EXT BID [facility] Last Admin: 05/02/18 18:25 Dose: 1 appful Metoprolol Tartrate (Lopressor) 5 mg IVP Q6H PRN PRN Reason: hr>130 Metoprolol Tartrate (Lopressor) 50 mg PO BID [facility] Warfarin Sodium (Coumadin) 1.25 mg PO 1800 [facility] PRN Reason: Protocol Last Admin: 05/01/18 17:22 Dose: 1.25 mg - Labs Labs: 05/03/18 05:30 05/03/18 05:30 PT 24.1 SECONDS (9.4-12.5) H 05/03/18 05:30 INR 2.06 05/03/18 05:30 APTT 42.0 Seconds (25.1-36.5) H 05/02/18 05:30 Assessment and Plan - Assessment and Plan (Free Text) Assessment: AMS CHF Pleural effusions Coagulopthy on admission AF with RVR , mod. to severe on echo with: Mod/sev. TR and sev. PH UTI Small pericardial effusion on echo Plan: Continue diuresis Increase PO metoprolol 50 BID and D/C cardizem. Resuuuume warfarin. Monitor INR daily. PO MG.++ OOB to chair as lorna. Monitor: labs, I/O, sats., INRs, F/U CXR, etc Social Service Evaluation. Needs protected environment.
[2018-05-03] MEDS: Ammonium Lactate 12% Lotion (225 g) EXT SCH ×2 (09:36→17:49)
[2018-05-03] MEDS: Cefpodoxime (Vantin) 200 mg Tab PO SCH (09:57)
[2018-05-03] MEDS: Magnesium Oxide 400 mg Tab UD PO SCH ×2 (09:57→17:42)
[2018-05-03] MEDS ORDERED: Metoprolol 1 mg/ml Inj IVP ONE (10:13)
[2018-05-03 11:02] LABS: ARTERIAL BLOOD GAS HEMOGLOBIN 12.7 g/dL (11.7-17.4); ARTERIAL BLOOD GAS O2 CAPACITY 17.3 mL/dl (16-24); ARTERIAL BLOOD GAS O2 CONTENT 17.2 ML/dl (15-23); ARTERIAL BLOOD GAS O2 SAT 99.3 % (95-98); ARTERIAL BLOOD GAS PCO2 89 mm/Hg (35-45); ARTERIAL BLOOD GAS PH 7.37 (7.35-7.45); ARTERIAL BLOOD GAS TCO2 54.2 mmol.L (22-28)
[2018-05-03 11:10] LABS: ARTERIAL BLOOD GAS HCO3 51.5 mmol/L (21-28)
[2018-05-03] MEDS ORDERED: Albuterol-Ipratrop 3 mg / 0.5 (3 ml) UD IH PRN (11:11)
[2018-05-03] MEDS: Albuterol-Ipratrop 3 mg / 0.5 (3 ml) UD IH SCH ×3 (12:06→20:41)
[2018-05-03] MEDS ORDERED: Potassium Chloride 20 mEq ER Tab PO STA (12:22)
[2018-05-03 12:42] LABS: ARTERIAL BLOOD GAS O2 SAT 99.7 % (95-98); ARTERIAL BLOOD GAS TCO2 57.2 mmol.L (22-28)
[2018-05-03 12:43] LABS: ARTERIAL BLOOD GAS HCO3 54.5 mmol/L (21-28)
[2018-05-03 12:44] LABS: ARTERIAL BLOOD GAS PCO2 88 mm/Hg (35-45)
--- NOTE | 2018-05-03 12:46 | RAD ---
Date of service: 05/03/2018 HISTORY: somnolent, r/o acute infiltrate or effusion COMPARISON: No prior. FINDINGS: LUNGS: No active pulmonary disease. PLEURA: Small bilateral pleural effusions CARDIOVASCULAR: Moderate cardiomegaly. Mild vascular congestion OSSEOUS STRUCTURES: No significant abnormalities. VISUALIZED UPPER ABDOMEN: Normal. OTHER FINDINGS: None. IMPRESSION: Moderate cardiomegaly and mild vascular congestion with small pleural effusions
--- NOTE | 2018-05-03 14:12 | CP.PCM.CON ---
History of Present Illness - History of Present Illness History of Present Illness: PULMONARY CONSULT NOTE HPI Patient is 87yo female with PMhx of CHF, Afib, HTN, Pulm HTN, COPD, ?Dementia, admitted to telemetry with AMS, UTI. Patient admitted, started on Abx, and Lasix IV diuresis. Patient had initial ABG which showed chronic resp acidosis, metabolic alkalosis, with normal pH. This morning patient was noted to be more altered. On my examination patient is on BIPAP, AAOx2, in NAD, speaking full sentences. Pt reports no major complaints. Pt is poor historian and cannot provide detailed history. History gathered from chart, and some from patient. PMhx CHF, Afib, HTN, Pulm HTN, COPD, ?Dementia, PSHX NONE MEDS as per EMR FHx NC Social Hx 40pk year smoking Hx, denies etoh, drug use Review of Systems - Review of Systems Review of Systems: as per HPI Past Patient History - Infectious Disease Hx of Infectious Diseases: None - Past Social History Smoking Status: Unknown If Ever Smoked - CARDIAC Hx Cardiac Disorders: No (unknown) Hx Congestive Heart Failure: Yes (now) Hx Peripheral Edema: Yes (4+) - PULMONARY Hx Respiratory Disorders: No (unknown) - NEUROLOGICAL Hx Neurological Disorder: No (unknown) - HEENT Hx HEENT Problems: (unknown) - RENAL Hx Chronic Kidney Disease: (unknown) - ENDOCRINE/METABOLIC Hx Endocrine Disorders: (unknown) - HEMATOLOGICAL/ONCOLOGICAL Hx Blood Disorders: No (unknown) - INTEGUMENTARY Hx Dermatological Problems: (unknown) - MUSCULOSKELETAL/RHEUMATOLOGICAL Hx Musculoskeletal Disorders: (unknown) Hx Falls: No (unknown confused) - GASTROINTESTINAL Hx Gastrointestinal Disorders: (unknown) - GENITOURINARY/GYNECOLOGICAL Hx Genitourinary Disorders: (unknown) - PSYCHIATRIC Hx Substance Use: No - SURGICAL HISTORY Hx Surgeries: (unknown) - ANESTHESIA Hx Anesthesia: No Meds Allergies/Adverse Reactions: Allergies Allergy/AdvReac Type Severity Reaction Status Date / Time No Known Allergies Allergy Unverified 04/29/18 14:20 - Medications Medications: Current Medications Albuterol/Ipratropium (Duoneb 3 Mg/0.5 Mg (3 Ml) Ud) 3 ml IH [id number] [facility] Last Admin: 05/03/18 12:06 Dose: 3 ml Albuterol/Ipratropium (Duoneb 3 Mg/0.5 Mg (3 Ml) Ud) 3 ml IH Q2H PRN PRN Reason: Shortness of Breath Cefpodoxime Proxetil (Vantin) 200 mg PO Q12 [facility] Stop: 05/05/18 10:01 Last Admin: 05/03/18 09:57 Dose: Not Given Famotidine (Pepcid) 20 mg PO DAILY [facility] Last Admin: 05/03/18 09:57 Dose: Not Given Furosemide (Lasix) 40 mg IVP DAILY [facility] Haloperidol Lactate (Haldol) 2 mg IM Q4 PRN; Protocol PRN Reason: Agitation Potassium Chloride (Potassium Chloride 10 Meq/100 Ml) 10 meq in 100 mls @ 50 mls/hr IVPB Q2H [facility] Stop: 05/03/18 16:29 Last Admin: 05/03/18 13:04 Dose: 50 mls/hr Lactic Acid (Lac-Hydrin 12% Lotion (225 G)) 0 gm EXT BID [facility] Last Admin: 05/03/18 09:36 Dose: 1 appful Magnesium Oxide (Mag-Ox) 400 mg PO BID [facility] Last Admin: 05/03/18 09:57 Dose: Not Given Methylprednisolone (Solu-Medrol) 40 mg IVP DAILY [facility] Metoprolol Tartrate (Lopressor) 5 mg IVP Q6H PRN PRN Reason: hr>130 Metoprolol Tartrate (Lopressor) 50 mg PO BID [facility] Last Admin: 05/03/18 10:08 Dose: Not Given Warfarin Sodium (Coumadin) 2 mg PO 1800 [facility] PRN Reason: Protocol Physical Exam - Constitutional Appears: Non-toxic, No Acute Distress - Head Exam Head Exam: NORMAL INSPECTION - Eye Exam Eye Exam: EOMI - ENT Exam ENT Exam: Mucous Membranes Moist - Neck Exam Neck exam: Positive for: Full Rom - Respiratory Exam Respiratory Exam: Clear to Auscultation Bilateral, NORMAL BREATHING PATTERN - Cardiovascular Exam Cardiovascular Exam: Irregular Rhythm, +S1, +S2 - GI/Abdominal Exam GI & Abdominal Exam: Normal Bowel Sounds, Soft - Neurological Exam Neurological exam: Alert Additional comments: AAOx2 - Psychiatric Exam Psychiatric exam: Normal Affect - Skin Skin Exam: Normal Color, Warm Results - Vital Signs Recent Vital Signs: Last Vital Signs Temp 98.8 F 05/03/18 12:00 Pulse 85 05/03/18 13:00 Resp 18 05/03/18 12:00 BP 112/74 05/03/18 12:00 Pulse Ox 97 05/03/18 13:00 - Labs Result Diagrams: 05/03/18 05:30 05/03/18 05:30 Labs: Laboratory Results - last 24 hr 05/02/18 05/02/18 05/03/18 16:39 21:49 05:30 WBC 5.9 D RBC 4.34 Hgb 11.6 L Hct 39.4 MCV 90.8 MCH 26.7 MCHC 29.4 L RDW 16.7 H Plt Count 148 MPV 10.5 Gran % 75.9 H Lymph % (Auto) 8.3 L [place] % (Auto) 13.9 H Eos % (Auto) 1.7 Baso % (Auto) 0.2 Gran # 4.49 Lymph # (Auto) 0.5 L [place] # (Auto) 0.8 H Eos # (Auto) 0.1 Baso # (Auto) 0.01 PT INR pCO2 pO2 HCO3 ABG pH ABG Total CO2 ABG O2 Saturation ABG O2 Content ABG Base Excess ABG Hemoglobin ABG Carboxyhemoglobin POC ABG HHb (Measured) ABG Methemoglobin ABG O2 Capacity ABG Potassium Hgb O2 Saturation Glucose Lactate FiO2 Inspiratory BiPAP Sodium Potassium Chloride Carbon Dioxide Anion Gap BUN Creatinine Est GFR ( Amer) Est GFR (Non-Af Amer) POC Glucose (mg/dL) 134 H 156 H Random Glucose Calcium Phosphorus Magnesium Total Bilirubin AST ALT Alkaline Phosphatase Total Protein Albumin Globulin Albumin/Globulin Ratio Arterial Blood Potassium 05/03/18 05/03/18 05/03/18 05:30 05:30 07:22 WBC RBC Hgb Hct MCV MCH MCHC RDW Plt Count MPV Gran % Lymph % (Auto) [place] % (Auto) Eos % (Auto) Baso % (Auto) Gran # Lymph # (Auto) [place] # (Auto) Eos # (Auto) Baso # (Auto) PT 24.1 H INR 2.06 pCO2 pO2 HCO3 ABG pH ABG Total CO2 ABG O2 Saturation ABG O2 Content ABG Base Excess ABG Hemoglobin ABG Carboxyhemoglobin POC ABG HHb (Measured) ABG Methemoglobin ABG O2 Capacity ABG Potassium Hgb O2 Saturation Glucose Lactate FiO2 Inspiratory BiPAP Sodium 139 Potassium 3.6 Chloride 90 L Carbon Dioxide 47 H D Anion Gap 6 L BUN 20 Creatinine 0.6 L Est GFR ( Amer) > 60 Est GFR (Non-Af Amer) > 60 POC Glucose (mg/dL) 100 Random Glucose 93 Calcium 7.8 L Phosphorus 2.3 L Magnesium 1.6 L Total Bilirubin 0.6 AST 24 ALT 26 Alkaline Phosphatase 49 Total Protein 5.4 L Albumin 2.7 L Globulin 2.8 Albumin/Globulin Ratio 1.0 L Arterial Blood Potassium 05/03/18 05/03/18 05/03/18 10:50 12:29 12:35 WBC RBC Hgb Hct MCV MCH MCHC RDW Plt Count MPV Gran % Lymph % (Auto) [place] % (Auto) Eos % (Auto) Baso % (Auto) Gran # Lymph # (Auto) [place] # (Auto) Eos # (Auto) Baso # (Auto) PT INR pCO2 89 H* 88 H* pO2 102.0 H 127.0 H HCO3 51.5 H* 54.5 H* ABG pH 7.37 7.40 ABG Total CO2 54.2 H 57.2 H ABG O2 Saturation 99.3 H 99.7 H ABG O2 Content 17.2 ABG Base Excess 21.3 H 24.0 H ABG Hemoglobin 12.7 ABG Carboxyhemoglobin 2.6 H POC ABG HHb (Measured) 0.7 ABG Methemoglobin 1.3 ABG O2 Capacity 17.3 ABG Potassium 3.1 L Hgb O2 Saturation 95.4 Glucose 91 Lactate 0.7 FiO2 32.0 40.0 Inspiratory BiPAP 16 Sodium 139.0 Potassium Chloride 96.0 L Carbon Dioxide Anion Gap BUN Creatinine Est GFR ( Amer) Est GFR (Non-Af Amer) POC Glucose (mg/dL) 76 Random Glucose Calcium Phosphorus Magnesium Total Bilirubin AST ALT Alkaline Phosphatase Total Protein Albumin Globulin Albumin/Globulin Ratio Arterial Blood Potassium 3.1 L - Imaging and Cardiology Chest x-ray Status: Image reviewed by me, Report reviewed by me CT scan - chest Status: Image reviewed by me, Report reviewed by me Assessment & Plan - Assessment and Plan (Free Text) Assessment: 87yo female with chronic resp acidosis, COPD exacerbation, CHF exacerbaiton Hypercapnia, Chronic compensated Resp Acidosis COPD exacerbation CHF exacerbation Pleural Effusions ?Dementia - Currently the patient is afebrile, BP stable, comfortable in NAD, AAOx2, poor historian, speaking full sentences - Labs, imaging, chart reviewed - CXR with improvement in vascular congesiton - CT chest with bilateral effusions - ABG today reveals normal pH, respiratory acidosis (compensated), with concomitant metabolic alkalosis; the increase in CO2 is likely result of increasing bicarb from contraction alkalosis 2/2 to IV diuretic use - cont with BIAP only as needed, and at night, would taper off to NC - Duonebs PRN - Pulmicort - Brovana - Solumedrol 40mg IV daily - Would decrease Lasix IV dose - follow up cardiology - rate control, would avoid BB, A/C as per cardiology - GI ppx - DVT ppx - Will need outpatient pulmonary follow up
--- NOTE | 2018-05-03 15:07 | CP.PCM.PN ---
<Linwood Short - Last Filed: 05/03/18 15:25> Subjective - Date & Time of Evaluation Date of Evaluation: 05/03/18 Time of Evaluation: 05:00 - Subjective Subjective: Pt seen and examined. Pt difficult to awake. Pt has difficulty following instructions. Objective - Vital Signs/Intake and Output Vital Signs (last 24 hours): Temp Pulse Resp BP Pulse Ox 98.8 F 85 18 112/74 97 05/03/18 12:00 05/03/18 13:00 05/03/18 12:00 05/03/18 12:00 05/03/18 13:00 Intake and Output: 05/03/18 05/03/18 06:59 18:59 Intake Total 1440 0 Output Total 500 650 Balance 940 -650 - Medications Medications: Current Medications Albuterol/Ipratropium (Duoneb 3 Mg/0.5 Mg (3 Ml) Ud) 3 ml IH [id number] [facility] Last Admin: 05/03/18 12:06 Dose: 3 ml Albuterol/Ipratropium (Duoneb 3 Mg/0.5 Mg (3 Ml) Ud) 3 ml IH Q2H PRN PRN Reason: Shortness of Breath Cefpodoxime Proxetil (Vantin) 200 mg PO Q12 [facility] Stop: 05/05/18 10:01 Last Admin: 05/03/18 09:57 Dose: Not Given Famotidine (Pepcid) 20 mg PO DAILY [facility] Last Admin: 05/03/18 09:57 Dose: Not Given Furosemide (Lasix) 40 mg IVP DAILY [facility] Haloperidol Lactate (Haldol) 2 mg IM Q4 PRN; Protocol PRN Reason: Agitation Potassium Chloride (Potassium Chloride 10 Meq/100 Ml) 10 meq in 100 mls @ 50 mls/hr IVPB Q2H [facility] Stop: 05/03/18 16:29 Last Admin: 05/03/18 13:04 Dose: 50 mls/hr Lactic Acid (Lac-Hydrin 12% Lotion (225 G)) 0 gm EXT BID [facility] Last Admin: 05/03/18 09:36 Dose: 1 appful Magnesium Oxide (Mag-Ox) 400 mg PO BID [facility] Last Admin: 05/03/18 09:57 Dose: Not Given Methylprednisolone (Solu-Medrol) 40 mg IVP DAILY [facility] Metoprolol Tartrate (Lopressor) 5 mg IVP Q6H PRN PRN Reason: hr>130 Metoprolol Tartrate (Lopressor) 50 mg PO BID [facility] Last Admin: 05/03/18 10:08 Dose: Not Given Warfarin Sodium (Coumadin) 2 mg PO 1800 [facility] PRN Reason: Protocol - Labs Labs: 05/03/18 05:30 05/03/18 05:30 PT 24.1 SECONDS (9.4-12.5) H 05/03/18 05:30 INR 2.06 05/03/18 05:30 APTT 42.0 Seconds (25.1-36.5) H 05/02/18 05:30 - Constitutional Appears: In Acute Distress - ENT Exam ENT Exam: Mucous Membranes Moist - Respiratory Exam Respiratory Exam: Clear to Ausculation Bilateral, NORMAL BREATHING PATTERN - Cardiovascular Exam Cardiovascular Exam: Tachycardia, Irregular Rhythm, JVD, +S1, +S2 - GI/Abdominal Exam GI & Abdominal Exam: Soft, Normal Bowel Sounds. absent: Tenderness - Extremities Exam Extremities Exam: Full ROM. absent: Calf Tenderness Assessment and Plan - Assessment and Plan (Free Text) Assessment: Pt is an 87 yo female with a PMH of atrial fibrillation, HTN, hypothyroid, and macular degeneration who presented to the ED via EMS after finding her in her covered in her own after she activated her life support alert. Plan: Atrial Fibrillation, with RVR - rate not well controlled, continue to follow - lopressor 5mg IVP q6h prn - digoxin 0.25mg, per cardio, hold due to pt age and risk of Digoxin toxicity - resume warfarin 1.25, per cardio - metoprolol tartrate 50mg BID, per cardio - INR 2.0, will continue to monitor CHF - ECHO: EF 66%, severe - lasix 40mg IVP BID - lasix 20mg PO daily - continue diuresis - Chest CT: severe cardiomegaly, moderate pericardial effusion, moderate B/L pleural effusion AMS - UTI, UA: protein, trace ketones, blood large, nitrate positive, LE trace - CT Head: moderate atrophy, no acute findings - aspiration precautions, fall precautions - PT: recommends [facility] - ABG: CO2 89, Pt placed on bipap only as needed an at night, taper off to NC COPD - methylprednisolone 40mg IVP Daily - trista - Pulmonology consulted, Dr Craft Hypokalemia - K 3.6 - replete PRN Hypomagnesemia - Mg 1.6 - replete PRN Hypophosphatemia - Phos 2.3 - replete PRN UTI - UA: protein, trace ketones, blood large, nitrate positive, LE trace - Urine culture: No growth - continue Rocephin 1 gram daily - continue Cefpodoxime 200mg PO q12 Failure to thrive - social consult: pt not interested in LTC, [facility] pending - case management: MOISES when medically stable Ppx - pepcid Pt seen, examined, assessment, and plan discussed with Dr [place]io Short PGY1 <Ashtyn Borjas - Last Filed: 05/04/18 18:43> Objective - Vital Signs/Intake and Output Vital Signs (last 24 hours): Temp Pulse Resp BP Pulse Ox 97.3 F L 82 19 108/63 97 05/04/18 17:56 05/04/18 17:56 05/04/18 17:56 05/04/18 17:56 05/04/18 09:00 Intake and Output: 05/04/18 05/04/18 06:59 18:59 Intake Total 0 Output Total 300 Balance -300 - Medications Medications: Current Medications Albuterol/Ipratropium (Duoneb 3 Mg/0.5 Mg (3 Ml) Ud) 3 ml IH [id number] [facility] Last Admin: 05/04/18 11:33 Dose: 3 ml Albuterol/Ipratropium (Duoneb 3 Mg/0.5 Mg (3 Ml) Ud) 3 ml IH Q2H PRN PRN Reason: Shortness of Breath Cefpodoxime Proxetil (Vantin) 200 mg PO Q12 [facility] Stop: 05/05/18 10:01 Last Admin: 05/03/18 09:57 Dose: Not Given Digoxin (Digoxin) 0.125 mg PO 1400 [facility] Last Admin: 05/04/18 14:41 Dose: 0.125 mg Famotidine (Pepcid) 20 mg IVP DAILY [facility] Last Admin: 05/04/18 09:45 Dose: 20 mg Furosemide (Lasix) 40 mg IVP BID [facility] Last Admin: 05/04/18 17:56 Dose: 40 mg Haloperidol Lactate (Haldol) 2 mg IM Q4 PRN; Protocol PRN Reason: Agitation Ceftriaxone Sodium (Rocephin 1 Gram Ivpb) 1 gm in 100 mls @ 100 mls/hr IVPB DAILY [facility] PRN Reason: Protocol Last Admin: 05/04/18 09:45 Dose: 100 mls/hr Lactic Acid (Lac-Hydrin 12% Lotion (225 G)) 0 gm EXT BID [facility] Last Admin: 05/04/18 17:56 Dose: 2 appful Magnesium Oxide (Mag-Ox) 400 mg PO BID [facility] Last Admin: 05/04/18 17:55 Dose: 400 mg Methylprednisolone (Solu-Medrol) 40 mg IVP DAILY [facility] Last Admin: 05/04/18 09:47 Dose: 40 mg Metoprolol Tartrate (Lopressor) 50 mg PO BID [facility] Last Admin: 05/04/18 17:56 Dose: 50 mg Warfarin Sodium (Coumadin) 2 mg PO 1800 [facility] PRN Reason: Protocol Last Admin: 05/04/18 17:55 Dose: 2 mg - Labs Labs: 05/04/18 06:00 05/04/18 06:00 PT 20.5 SECONDS (9.4-12.5) H 05/04/18 06:00 INR 1.76 05/04/18 06:00 APTT 42.0 Seconds (25.1-36.5) H 05/02/18 05:30 Attending/Attestation - Attestation I have personally seen and examined this patient.: Yes I have fully participated in the care of the patient.: Yes I have reviewed all pertinent clinical information, including history, physical exam and plan: Yes Notes (Text): 05/04/18 18:40 Medical record note made by the resident after discussion with my direction and input after the patient was personally seen and examined by me. I have reviewed the chart and agree that the record accurately reflects by personal performance of the history, physical exam, data review, and medical decision-making, in the course for the patient. I have also personally directed the plan of care. 87yo female with PMhx of CHF, Afib on oral anticoagulation with warfarin , HTN, , COPD, ?Dementia, was admitted to telemetry with change of mental status , she was found to have UTI,AF with RVR and acute on chronic diastolic CHF.exacerbationCT chest showed bilateral Pleural effusion and pericardial effusion, Echo also showed pericardial effusion. Patient is drowsy today.ABG showed hypercapnic Resp Failure, will start patient on BIPAP,we will add IV steroid. We will get Pulmonary consult.We willkeep patient NPO , will switch all medication to IV. Watch for hypoglycemia. Patient is high risk for aspiraion. If patient will not respond to BIPAP, will need intubation. Patient is full code at this time. Prognosis is guarded.
[2018-05-03] MEDS: MethylPREDNISolone 40 mg Vial IVP SCH (15:09)
[2018-05-03] MEDS: Magnesium Sulfate 1 gm in D5W 1 GM/100 ML BAG IVPB ONE ×2 (15:10→17:11)
[2018-05-03] MEDS: Metoprolol 1 mg/ml Inj IVP SCH ×2 (17:41→23:00)
[2018-05-03] MEDS ORDERED: Potassium & Sodium Phosphate PO SCH (18:00)
--- NOTE | 2018-05-03 21:33 | CP.PCM.PN ---
Subjective - Date & Time of Evaluation Date of Evaluation: 05/03/18 Time of Evaluation: 21:31 - Subjective Subjective: pt needs iv aces. pt,s extremities are swollen. Objective - Vital Signs/Intake and Output Vital Signs (last 24 hours): Temp Pulse Resp BP Pulse Ox 97.8 F 102 H 18 125/81 94 L 05/03/18 17:00 05/03/18 20:51 05/03/18 17:00 05/03/18 17:41 05/03/18 20:51 Intake and Output: 05/03/18 05/04/18 18:59 06:59 Intake Total 494 Output Total 2550 Balance -2055 - Medications Medications: Current Medications Albuterol/Ipratropium (Duoneb 3 Mg/0.5 Mg (3 Ml) Ud) 3 ml IH [id number] [facility] Last Admin: 05/03/18 20:41 Dose: 3 ml Albuterol/Ipratropium (Duoneb 3 Mg/0.5 Mg (3 Ml) Ud) 3 ml IH Q2H PRN PRN Reason: Shortness of Breath Cefpodoxime Proxetil (Vantin) 200 mg PO Q12 [facility] Stop: 05/05/18 10:01 Last Admin: 05/03/18 09:57 Dose: Not Given Famotidine (Pepcid) 20 mg IVP DAILY [facility] Furosemide (Lasix) 40 mg IVP DAILY [facility] Haloperidol Lactate (Haldol) 2 mg IM Q4 PRN; Protocol PRN Reason: Agitation Ceftriaxone Sodium (Rocephin 1 Gram Ivpb) 1 gm in 100 mls @ 100 mls/hr IVPB DAILY [facility] PRN Reason: Protocol Lactic Acid (Lac-Hydrin 12% Lotion (225 G)) 0 gm EXT BID [facility] Last Admin: 05/03/18 17:49 Dose: 1 appful Magnesium Oxide (Mag-Ox) 400 mg PO BID [facility] Last Admin: 05/03/18 17:42 Dose: Not Given Methylprednisolone (Solu-Medrol) 40 mg IVP DAILY [facility] Last Admin: 05/03/18 15:09 Dose: 40 mg Metoprolol Tartrate (Lopressor) 5 mg IVP Q6H [facility] Last Admin: 05/03/18 17:41 Dose: 5 mg Warfarin Sodium (Coumadin) 2 mg PO 1800 [facility] PRN Reason: Protocol Last Admin: 05/03/18 18:06 Dose: 2 mg - Labs Labs: 05/03/18 05:30 05/03/18 05:30 PT 24.1 SECONDS (9.4-12.5) H 05/03/18 05:30 INR 2.06 05/03/18 05:30 APTT 42.0 Seconds (25.1-36.5) H 05/02/18 05:30 Assessment and Plan - Assessment and Plan (Free Text) Assessment: guage angiocath placed in left ext jugular.
[2018-05-04] MEDS: Albuterol-Ipratrop 3 mg / 0.5 (3 ml) UD IH SCH ×5 (00:11→20:00)
[2018-05-04] MEDS: Metoprolol 1 mg/ml Inj IVP SCH (05:08)
[2018-05-04 07:16] LABS: INR 1.76; PROTHROMBIN TIME 20.5 SECONDS (9.4-12.5)
[2018-05-04 07:19] LABS: GRAN # 3.84 (1.4-6.5); GRAN % 88.3 % (50.0-68.0); HEMOGLOBIN 12.2 g/dL (12.0-16.0); LYMPH # 0.3 (1.2-3.4); LYMPH % 7.8 % (22.0-35.0); MEAN CELL VOLUME 89.2 fl (80.0-105.0); MEAN CORPUSCULAR HEMOGLOBIN 26.9 pg (25.0-35.0); MEAN CORPUSCULAR HGB CONC 30.2 g/dl (31.0-37.0); MEAN PLATELET VOLUME 10.2 fl (7.0-11.0); MONO # 0.2 (0.1-0.6); MONO % 3.9 % (1.0-6.0); RBC 4.53 10^6/uL (3.5-6.1); RED CELL DISTRIBUTION WIDTH 16.9 % (11.5-14.5); WHITE BLOOD COUNT 4.4 10^3/ul (4.5-11.0)
[2018-05-04 07:35] LABS: BLOOD UREA NITROGEN 19 mg/dL (7-21); CALCIUM 7.9 mg/dL (8.4-10.5); GFR NON-AFRICAN AMERICAN > 60
[2018-05-04] MEDS: cefTRIAXone 1 gm 1 GM/100 ML BAG IVPB SCH (09:45)
[2018-05-04] MEDS: Magnesium Oxide 400 mg Tab UD PO SCH ×2 (09:46→17:55)
[2018-05-04] MEDS: MethylPREDNISolone 40 mg Vial IVP SCH (09:47)
[2018-05-04] MEDS: Ammonium Lactate 12% Lotion (225 g) EXT SCH ×2 (09:48→17:56)
--- NOTE | 2018-05-04 11:14 | CP.PCM.PN ---
<Linwood Short - Last Filed: 05/04/18 11:30> Subjective - Date & Time of Evaluation Date of Evaluation: 05/04/18 Time of Evaluation: 06:00 - Subjective Subjective: Pt seen and examined this morning. Mental state is much improved with BiPAP. Able to answer more questions. Objective - Vital Signs/Intake and Output Vital Signs (last 24 hours): Temp Pulse Resp BP Pulse Ox 97.6 F 111 H 18 110/69 97 05/04/18 06:00 05/04/18 09:46 05/04/18 09:00 05/04/18 09:46 05/04/18 09:00 Intake and Output: 05/04/18 05/04/18 06:59 18:59 Intake Total 0 Output Total 300 Balance -300 - Medications Medications: Current Medications Albuterol/Ipratropium (Duoneb 3 Mg/0.5 Mg (3 Ml) Ud) 3 ml IH [id number] [facility] Last Admin: 05/04/18 08:11 Dose: 3 ml Albuterol/Ipratropium (Duoneb 3 Mg/0.5 Mg (3 Ml) Ud) 3 ml IH Q2H PRN PRN Reason: Shortness of Breath Cefpodoxime Proxetil (Vantin) 200 mg PO Q12 [facility] Stop: 05/05/18 10:01 Last Admin: 05/03/18 09:57 Dose: Not Given Famotidine (Pepcid) 20 mg IVP DAILY [facility] Last Admin: 05/04/18 09:45 Dose: 20 mg Furosemide (Lasix) 40 mg IVP DAILY [facility] Last Admin: 05/04/18 09:46 Dose: 40 mg Haloperidol Lactate (Haldol) 2 mg IM Q4 PRN; Protocol PRN Reason: Agitation Ceftriaxone Sodium (Rocephin 1 Gram Ivpb) 1 gm in 100 mls @ 100 mls/hr IVPB DAILY [facility] PRN Reason: Protocol Last Admin: 05/04/18 09:45 Dose: 100 mls/hr Lactic Acid (Lac-Hydrin 12% Lotion (225 G)) 0 gm EXT BID [facility] Last Admin: 05/04/18 09:48 Dose: 2 appful Magnesium Oxide (Mag-Ox) 400 mg PO BID [facility] Last Admin: 05/04/18 09:46 Dose: 400 mg Methylprednisolone (Solu-Medrol) 40 mg IVP DAILY [facility] Last Admin: 05/04/18 09:47 Dose: 40 mg Metoprolol Tartrate (Lopressor) 50 mg PO BID [facility] Last Admin: 05/04/18 09:46 Dose: 50 mg Warfarin Sodium (Coumadin) 2 mg PO 1800 [facility] PRN Reason: Protocol Last Admin: 05/03/18 18:06 Dose: 2 mg - Labs Labs: 05/04/18 06:00 05/04/18 06:00 PT 20.5 SECONDS (9.4-12.5) H 05/04/18 06:00 INR 1.76 05/04/18 06:00 APTT 42.0 Seconds (25.1-36.5) H 05/02/18 05:30 - Constitutional Appears: No Acute Distress - Head Exam Head Exam: ATRAUMATIC, NORMOCEPHALIC - Respiratory Exam Respiratory Exam: NORMAL BREATHING PATTERN Additional comments: pt wearing BiPAP at this time - Cardiovascular Exam Cardiovascular Exam: Tachycardia, Irregular Rhythm, +S1, +S2 - GI/Abdominal Exam GI & Abdominal Exam: Soft, Normal Bowel Sounds - Extremities Exam Extremities Exam: Pedal Edema. absent: Calf Tenderness Assessment and Plan - Assessment and Plan (Free Text) Assessment: Pt is an 87 yo female with a PMH of atrial fibrillation, HTN, hypothyroid, and macular degeneration who presented to the ED via EMS after finding her in her covered in her own after she activated her life support alert. Plan: Atrial Fibrillation, with RVR - rate not well controlled, continue to follow - lopressor 5mg IVP q6h prn - restart metoprolol 50mg BID PO - warfarin 2mg, per cardio - INR 1.76, will continue to monitor CHF - ECHO: EF 66%, severe - Chest CT: severe cardiomegaly, moderate pericardial effusion, moderate B/L pleural effusion - lasix 40mg IVP - continue diuresis AMS - UTI, UA: protein, trace ketones, blood large, nitrate positive, LE trace - CT Head: moderate atrophy, no acute findings - aspiration precautions, fall precautions - PT: recommends MOISES - ABG: CO2 89, Pt placed on bipap only as needed an at night, taper off to NC COPD - methylprednisolone 40mg IVP Daily - trista - Pulmonology consulted, Dr Craft - BiPAP working well, will try to transition to NC Hypomagnesemia - Mg 1.9 - replete PRN Hypophosphatemia - Phos 2.3 - replete PRN Hypokalemia - K 4.3 - replete PRN UTI - UA: protein, trace ketones, blood large, nitrate positive, LE trace - Urine culture: No growth - continue Rocephin 1 gram daily Failure to thrive - social consult: pt not interested in LTC, [facility] pending - case management: MOISES when medically stable Ppx - pepcid Pt seen, examined, assessment, and plan discussed with Dr Indio Short PGY1 Internal Medicine Resident <Ashtyn Borjas - Last Filed: 05/04/18 18:36> Objective - Vital Signs/Intake and Output Vital Signs (last 24 hours): Temp Pulse Resp BP Pulse Ox 97.3 F L 82 19 108/63 97 05/04/18 17:56 05/04/18 17:56 05/04/18 17:56 05/04/18 17:56 05/04/18 09:00 Intake and Output: 05/04/18 05/04/18 06:59 18:59 Intake Total 0 Output Total 300 Balance -300 - Medications Medications: Current Medications Albuterol/Ipratropium (Duoneb 3 Mg/0.5 Mg (3 Ml) Ud) 3 ml IH [id number] [facility] Last Admin: 05/04/18 11:33 Dose: 3 ml Albuterol/Ipratropium (Duoneb 3 Mg/0.5 Mg (3 Ml) Ud) 3 ml IH Q2H PRN PRN Reason: Shortness of Breath Cefpodoxime Proxetil (Vantin) 200 mg PO Q12 [facility] Stop: 05/05/18 10:01 Last Admin: 05/03/18 09:57 Dose: Not Given Digoxin (Digoxin) 0.125 mg PO 1400 [facility] Last Admin: 05/04/18 14:41 Dose: 0.125 mg Famotidine (Pepcid) 20 mg IVP DAILY [facility] Last Admin: 05/04/18 09:45 Dose: 20 mg Furosemide (Lasix) 40 mg IVP BID [facility] Last Admin: 05/04/18 17:56 Dose: 40 mg Haloperidol Lactate (Haldol) 2 mg IM Q4 PRN; Protocol PRN Reason: Agitation Ceftriaxone Sodium (Rocephin 1 Gram Ivpb) 1 gm in 100 mls @ 100 mls/hr IVPB DAILY [facility] PRN Reason: Protocol Last Admin: 05/04/18 09:45 Dose: 100 mls/hr Lactic Acid (Lac-Hydrin 12% Lotion (225 G)) 0 gm EXT BID [facility] Last Admin: 05/04/18 17:56 Dose: 2 appful Magnesium Oxide (Mag-Ox) 400 mg PO BID [facility] Last Admin: 05/04/18 17:55 Dose: 400 mg Methylprednisolone (Solu-Medrol) 40 mg IVP DAILY [facility] Last Admin: 05/04/18 09:47 Dose: 40 mg Metoprolol Tartrate (Lopressor) 50 mg PO BID [facility] Last Admin: 05/04/18 17:56 Dose: 50 mg Warfarin Sodium (Coumadin) 2 mg PO 1800 [facility] PRN Reason: Protocol Last Admin: 05/04/18 17:55 Dose: 2 mg - Labs Labs: 05/04/18 06:00 05/04/18 06:00 PT 20.5 SECONDS (9.4-12.5) H 05/04/18 06:00 INR 1.76 05/04/18 06:00 APTT 42.0 Seconds (25.1-36.5) H 05/02/18 05:30 Attending/Attestation - Attestation I have personally seen and examined this patient.: Yes I have fully participated in the care of the patient.: Yes I have reviewed all pertinent clinical information, including history, physical exam and plan: Yes Notes (Text): 05/04/18 18:31 Medical record note made by the resident after discussion with my direction and input after the patient was personally seen and examined by me. I have reviewed the chart and agree that the record accurately reflects by personal performance of the history, physical exam, data review, and medical decision-making, in the course for the patient. I have also personally directed the plan of care. 87yo female with PMhx of CHF, Afib on oral anticoagulation with warfarin , HTN, , COPD, ?Dementia, was admitted to telemetry with change of mental status , she was found to have UTI,AF with RVR and acute on chronic diastolic CHF.exacerbation CT chest showed bilateral Pleural effusion and pericardial effusion, Echo also showed pericardial effusion. Patient was started on BIPAP yesterday as she was found to drowsy and was found to have hypercapnic Resp Failure.Patient has responded well.She is back to her base line today. Acute on chronic diastolic CHF, continue IV lasix, renal functions are stable, cardiology evaluation is appreciated. AF with RVR, rate is not better controlled, Patient is awake today, we will resume oral Metoprolol, Digxon is added. UTI, Afebrile, on IV Rocephin.Blood cultures are negative. Prognosis is guarded.
--- NOTE | 2018-05-04 13:29 | PN ---
DATE: 05/04/2018 SUBJECTIVE: The patient was seen lying in bed on telemetry. She is more awake and appropriate today. A swallowing evaluation was performed last evening and this was reportedly normal and she has resumed oral intake. She remains in atrial fibrillation with moderate ventricular response. Her current medications are now warfarin, DuoNeb inhaler, Haldol p.r.n., Lasix 40 mg IV daily, metoprolol 50 mg b.i.d., magnesium supplement, Pepcid, Rocephin, Solu-Medrol and Vantin. PHYSICAL EXAMINATION: GENERAL: She is a very elderly woman who appears comfortable. VITAL SIGNS: Her blood pressure is 110/70 with pulse of 110-120 in atrial fibrillation, respirations 16. She is afebrile. HEENT: No JVD. CHEST: Diminished breath sounds at the bases. HEART: PMI displaced laterally with an irregular-regular rhythm. ABDOMEN: Soft, nontender with normoactive bowel sounds. EXTREMITIES: 2+ anasarca is present. DIAGNOSTIC DATA: Potassium 4.3, BUN and creatinine 19 and 0.5. White count 4.4, hemoglobin and hematocrit of 12 and 40.4, platelet count 139,000. IMPRESSION: 1. Chronic atrial fibrillation with moderate ventricular rate likely increased in part due to inability to take recent oral intake. 2. Decompensated congestive heart failure, [id number]. 3. Kzxuivvo-lu-sqnpmh aortic stenosis. 4. [id number] tricuspid regurgitation. RECOMMENDATIONS: IV diuresis should continue. Oral metoprolol be continued. Low-dose digoxin will be added for heart rate control as well. as a b.i.d. Lasix dosing will be given for several days in order to improve diuresis. We will continue to follow and make further recommendations as appropriate. Celestine Truong MD
[2018-05-04] MEDS: Digoxin 125 mcg (0.125 mg) Tab PO SCH (14:41)
[2018-05-05] MEDS: Albuterol-Ipratrop 3 mg / 0.5 (3 ml) UD IH SCH ×7 (00:20→23:15)
[2018-05-05 08:24] LABS: EOS % 0.1 % (1.5-5.0); GRAN # 7.53 (1.4-6.5); GRAN % 85.7 % (50.0-68.0); LYMPH # 0.5 (1.2-3.4); LYMPH % 5.1 % (22.0-35.0); MEAN CELL VOLUME 87.6 fl (80.0-105.0); MEAN CORPUSCULAR HEMOGLOBIN 27.5 pg (25.0-35.0); MEAN CORPUSCULAR HGB CONC 31.4 g/dl (31.0-37.0); MEAN PLATELET VOLUME 10.2 fl (7.0-11.0); MONO # 0.8 (0.1-0.6); MONO % 9.1 % (1.0-6.0); RBC 4.36 10^6/uL (3.5-6.1); WHITE BLOOD COUNT 8.8 10^3/ul (4.5-11.0)
[2018-05-05 08:28] LABS: INR 1.83; PROTHROMBIN TIME 21.3 SECONDS (9.4-12.5)
[2018-05-05] MEDS: Metoprolol 1 mg/ml Inj IVP PRN ×3 (09:00→21:17)
[2018-05-05 09:12] LABS: BLOOD UREA NITROGEN 23 mg/dL (7-21); GFR NON-AFRICAN AMERICAN > 60
[2018-05-05] MEDS: Ammonium Lactate 12% Lotion (225 g) EXT SCH ×2 (10:16→17:52)
[2018-05-05] MEDS: Magnesium Oxide 400 mg Tab UD PO SCH ×2 (10:17→17:48)
[2018-05-05] MEDS: MethylPREDNISolone 40 mg Vial IVP SCH (10:18)
[2018-05-05] MEDS: cefTRIAXone 1 gm 1 GM/100 ML BAG IVPB SCH (10:18)
--- NOTE | 2018-05-05 12:03 | PN ---
DATE: 05/05/2018 SUBJECTIVE: The patient is seen lying in bed on telemetry. She is somnolent, but arousable. She is comfortable at the present time. She continues to have intermittent rapid atrial fibrillation. She remains volume overloaded. CURRENT MEDICATIONS: Include warfarin, digoxin 0.125 mg daily, albuterol inhaler, Haldol p.r.n., Lasix at 40 mg IV b.i.d., Lopressor 50 mg b.i.d., Pepcid, Rocephin and Solu-Medrol. OBJECTIVE: GENERAL: She is an overweight, very elderly woman. VITAL SIGNS: Her blood pressure is 102/60 with a pulse of 110 in atrial fibrillation, respirations are 16. She is afebrile. HEENT: No JVD. CHEST: Diminished breath sounds at the bases. HEART: PMI displaced laterally with irregularly irregular rhythm and systolic murmur at the base. ABDOMEN: Soft, nontender. Normoactive bowel sounds. EXTREMITIES: 2+ anasarca. DIAGNOSTIC DATA: Potassium 3.9, BUN and creatinine 23 and 0.7. White count 8.8, hemoglobin and hematocrit 12 and 38.2 with a platelet count of 155,000. INR is 1.83. IMPRESSION: 1. Chronic atrial fibrillation with suboptimal heart rate control. 2. Decompensated congestive heart failure, acute on chronic combined systolic and diastolic. 3. Moderately severe aortic stenosis. 4. Mildly severe tricuspid regurgitation. RECOMMENDATIONS: IV diuretic therapy will be continued. Anticoagulant therapy should continue as well. Digoxin will be maintained. Metoprolol dose will be increased to three times daily as tolerated for better heart rate control. Continue conservative management appears most appropriate at this time. We will continue to follow and make further recommendations as appropriate. Celestine Truong MD
--- NOTE | 2018-05-05 12:26 | CP.PCM.PN ---
<Linwood Short - Last Filed: 05/05/18 12:39> Subjective - Date & Time of Evaluation Date of Evaluation: 05/05/18 Time of Evaluation: 07:00 - Subjective Subjective: Pt seen and examined this morning at bedside. Pt mental status has greatly improved. Pt denies SOB, chest pain. Objective - Vital Signs/Intake and Output Vital Signs (last 24 hours): Temp Pulse Resp BP Pulse Ox 97.9 F 160 H 18 121/60 93 L 05/05/18 00:01 05/05/18 10:00 05/05/18 00:01 05/05/18 10:16 05/05/18 00:01 Intake and Output: 05/05/18 05/05/18 06:59 18:59 Intake Total 1387 Output Total 1300 Balance 87 - Medications Medications: Current Medications Albuterol/Ipratropium (Duoneb 3 Mg/0.5 Mg (3 Ml) Ud) 3 ml IH [id number] [facility] Last Admin: 05/05/18 07:51 Dose: 3 ml Albuterol/Ipratropium (Duoneb 3 Mg/0.5 Mg (3 Ml) Ud) 3 ml IH Q2H PRN PRN Reason: Shortness of Breath Digoxin (Digoxin) 0.125 mg PO 1400 [facility] Last Admin: 05/04/18 14:41 Dose: 0.125 mg Famotidine (Pepcid) 20 mg IVP DAILY [facility] Last Admin: 05/05/18 10:17 Dose: 20 mg Furosemide (Lasix) 40 mg IVP BID [facility] Last Admin: 05/05/18 10:16 Dose: 40 mg Haloperidol Lactate (Haldol) 2 mg IM Q4 PRN; Protocol PRN Reason: Agitation Ceftriaxone Sodium (Rocephin 1 Gram Ivpb) 1 gm in 100 mls @ 100 mls/hr IVPB DAILY [facility] PRN Reason: Protocol Last Admin: 05/05/18 10:18 Dose: 100 mls/hr Lactic Acid (Lac-Hydrin 12% Lotion (225 G)) 0 gm EXT BID [facility] Last Admin: 05/05/18 10:16 Dose: 1 appful Magnesium Oxide (Mag-Ox) 400 mg PO BID [facility] Last Admin: 05/05/18 10:17 Dose: 400 mg Methylprednisolone (Solu-Medrol) 40 mg IVP DAILY [facility] Last Admin: 05/05/18 10:18 Dose: 40 mg Metoprolol Tartrate (Lopressor) 50 mg PO BID [facility] Last Admin: 05/05/18 10:17 Dose: Not Given Metoprolol Tartrate (Lopressor) 5 mg IVP Q6 PRN PRN Reason: Heart rate Last Admin: 05/05/18 09:00 Dose: 5 mg Warfarin Sodium (Coumadin) 2.5 mg PO 1800 [facility] PRN Reason: Protocol - Labs Labs: 05/05/18 08:00 05/05/18 08:00 PT 21.3 SECONDS (9.4-12.5) H 05/05/18 08:00 INR 1.83 05/05/18 08:00 APTT 42.0 Seconds (25.1-36.5) H 05/02/18 05:30 - Constitutional Appears: In Acute Distress - Head Exam Head Exam: ATRAUMATIC, NORMOCEPHALIC - ENT Exam ENT Exam: Mucous Membranes Moist - Respiratory Exam Respiratory Exam: absent: Accessory Muscle Use, Respiratory Distress - Cardiovascular Exam Cardiovascular Exam: Irregular Rhythm, +S1, +S2. absent: Diastolic murmur - GI/Abdominal Exam GI & Abdominal Exam: Soft. absent: Tenderness - Extremities Exam Extremities Exam: Pedal Edema - Neurological Exam Neurological Exam: Alert, Awake - Psychiatric Exam Psychiatric exam: Normal Affect, Normal Mood - Skin Skin Exam: Dry, Intact, Warm Assessment and Plan - Assessment and Plan (Free Text) Assessment: Pt is an 87 yo female with a PMH of atrial fibrillation, HTN, hypothyroid, and macular degeneration who presented to the ED via EMS after finding her in her covered in her own after she activated her life support alert. Plan: Atrial Fibrillation, with RVR - rate not well controlled, continue to follow - lopressor 5mg IVP q6h prn, give if HR over 115, hold if BP is less than 100 - restart metoprolol 50mg BID PO - increase warfarin to 2.5mg, INR 1.83, will continue to monitor - if rate remains uncontrolled, will start pt back on cardizem drip - digoxin 0.125 PO CHF - ECHO: EF 66%, severe - Chest CT: severe cardiomegaly, moderate pericardial effusion, moderate B/L pleural effusion - lasix 40mg IVP BID - continue diuresis - Cardio: IV diuretic, anticoagulation, digoxin, metoprolol, continue conservative management, will make further recommendations as needed AMS - UTI, UA: protein, trace ketones, blood large, nitrate positive, LE trace - CT Head: moderate atrophy, no acute findings - aspiration precautions, fall precautions - PT: recommends MOISES COPD - methylprednisolone 40mg IVP Daily - trista - Pulmonology consulted, Dr Craft - Pt using O2 NC, will use BiPAP if needed Hypomagnesemia - Mg 2.0 - replete PRN Hypophosphatemia - Phos 2.3 - replete PRN Hypokalemia - K 3.9 - replete PRN UTI - UA: protein, trace ketones, blood large, nitrate positive, LE trace - Urine culture: No growth - continue Rocephin 1 gram daily Failure to thrive - social consult: pt not interested in LTC, [facility] - case management: MOISES when medically stable - palliative care consulted Ppx - pepcid Pt seen, examined, assessment and plan discussed with Dr Indio Short PGY1 Internal Medicine Resident <Ashtyn Borjas - Last Filed: 05/05/18 16:00> Objective - Vital Signs/Intake and Output Vital Signs (last 24 hours): Temp Pulse Resp BP Pulse Ox 98.2 F 146 H 18 97/63 L 93 L 05/05/18 12:00 05/05/18 14:49 05/05/18 12:00 05/05/18 12:00 05/05/18 00:01 Intake and Output: 05/05/18 05/05/18 06:59 18:59 Intake Total 1387 Output Total 1300 Balance 87 - Medications Medications: Current Medications Albuterol/Ipratropium (Duoneb 3 Mg/0.5 Mg (3 Ml) Ud) 3 ml IH [id number] [facility] Last Admin: 05/05/18 15:18 Dose: 3 ml Albuterol/Ipratropium (Duoneb 3 Mg/0.5 Mg (3 Ml) Ud) 3 ml IH Q2H PRN PRN Reason: Shortness of Breath Digoxin (Digoxin) 0.125 mg PO 1400 [facility] Last Admin: 05/05/18 13:44 Dose: 0.125 mg Famotidine (Pepcid) 20 mg IVP DAILY [facility] Last Admin: 05/05/18 10:17 Dose: 20 mg Furosemide (Lasix) 40 mg IVP BID [facility] Last Admin: 05/05/18 10:16 Dose: 40 mg Haloperidol Lactate (Haldol) 2 mg IM Q4 PRN; Protocol PRN Reason: Agitation Ceftriaxone Sodium (Rocephin 1 Gram Ivpb) 1 gm in 100 mls @ 100 mls/hr IVPB DAILY [facility] PRN Reason: Protocol Last Admin: 05/05/18 10:18 Dose: 100 mls/hr Lactic Acid (Lac-Hydrin 12% Lotion (225 G)) 0 gm EXT BID [facility] Last Admin: 05/05/18 10:16 Dose: 1 appful Magnesium Oxide (Mag-Ox) 400 mg PO BID [facility] Last Admin: 05/05/18 10:17 Dose: 400 mg Methylprednisolone (Solu-Medrol) 40 mg IVP DAILY [facility] Last Admin: 05/05/18 10:18 Dose: 40 mg Metoprolol Tartrate (Lopressor) 50 mg PO BID [facility] Last Admin: 05/05/18 10:17 Dose: Not Given Metoprolol Tartrate (Lopressor) 5 mg IVP Q6 PRN PRN Reason: Heart rate Last Admin: 05/05/18 14:49 Dose: 5 mg Warfarin Sodium (Coumadin) 2.5 mg PO 1800 [facility] PRN Reason: Protocol - Labs Labs: 05/05/18 08:00 05/05/18 08:00 PT 21.3 SECONDS (9.4-12.5) H 05/05/18 08:00 INR 1.83 05/05/18 08:00 APTT 42.0 Seconds (25.1-36.5) H 05/02/18 05:30 Attending/Attestation - Attestation I have personally seen and examined this patient.: Yes I have fully participated in the care of the patient.: Yes I have reviewed all pertinent clinical information, including history, physical exam and plan: Yes Notes (Text): 05/05/18 15:56 Medical record note made by the resident after discussion with my direction and input after the patient was personally seen and examined by me. I have reviewed the chart and agree that the record accurately reflects by personal performance of the history, physical exam, data review, and medical decision-making, in the course for the patient. I have also personally directed the plan of care. 87yo female with PMhx of CHF, Afib on oral anticoagulation with warfarin , HTN, , COPD, ?Dementia, was admitted to telemetry with change of mental status , she was found to have UTI,AF with RVR and acute on chronic diastolic CHF.exacerbation. CT chest showed bilateral Pleural effusion and pericardial effusion, Echo also showed pericardial effusion. Patient was started on BIPAP 2 days back as she was found to drowsy and was found to have hypercapnic Resp Failure.Patient has responded well.She is back to her base line today. Acute on chronic diastolic CHF, continue IV lasix, renal functions are stable, cardiology evaluation is appreciated. AF with RVR, rate is not better controlled, on Metoprolol to 50 mg BID,will add PRN Metoprolol., she is also on digoxin.INR is not therapeautic.Warfarin dose is increased to 2.5 mg.We will follow up INR UTI, Afebrile, on IV Rocephin.Blood cultures are negative. Prognosis is guarded. 05/05/18 15:59
[2018-05-05] MEDS: Digoxin 125 mcg (0.125 mg) Tab PO SCH (13:44)
--- NOTE | 2018-05-05 13:59 | CARD ---
APPROVED REPORT Date of service: 05/05/2018 EKG Measurement Heart [id number] <Conclusion> Atrial fibrillation with rapid ventricular response Low voltage QRS RSR' or QR pattern in V1 suggests right ventricular conduction delay ST & T wave abnormality, consider inferior ischemia or digitalis effect Abnormal ECG
[2018-05-06] MEDS: Albuterol-Ipratrop 3 mg / 0.5 (3 ml) UD IH SCH ×5 (03:24→19:53)
[2018-05-06 06:31] LABS: EOS % 0.1 % (1.5-5.0); GRAN # 7.13 (1.4-6.5); GRAN % 86.1 % (50.0-68.0); HEMOGLOBIN 11.4 g/dL (12.0-16.0); LYMPH # 0.8 (1.2-3.4); LYMPH % 9.1 % (22.0-35.0); MEAN CELL VOLUME 88.8 fl (80.0-105.0); MEAN CORPUSCULAR HEMOGLOBIN 26.7 pg (25.0-35.0); MEAN CORPUSCULAR HGB CONC 30.1 g/dl (31.0-37.0); MEAN PLATELET VOLUME 10.3 fl (7.0-11.0); MONO # 0.4 (0.1-0.6); MONO % 4.7 % (1.0-6.0); RBC 4.27 10^6/uL (3.5-6.1); RED CELL DISTRIBUTION WIDTH 17.6 % (11.5-14.5); WHITE BLOOD COUNT 8.3 10^3/ul (4.5-11.0)
[2018-05-06 06:37] LABS: INR 1.52; PROTHROMBIN TIME 17.6 SECONDS (9.4-12.5)
[2018-05-06 06:59] LABS: BLOOD UREA NITROGEN 31 mg/dL (7-21); CALCIUM 8.2 mg/dL (8.4-10.5); GFR NON-AFRICAN AMERICAN > 60
--- NOTE | 2018-05-06 08:28 | CP.PCM.PN ---
Subjective - Date & Time of Evaluation Date of Evaluation: 05/06/18 Time of Evaluation: 07:00 - Subjective Subjective: Stable on 2R. No CP or SOB. Alert. V/S noted. AF, mod VR. She got an extra dose of metoprolol last night for rapid VR. PE: Lungs: rhonchi Cor: irreg S1S2, RICHARD Abd.: soft Ext.: + edema Neuro.: alert Labs: INR = 1.52, K+= 4.3, CR.= 0.8 BC X2 NG at 5 days Urine C+S: NG CXR 05/03 noted: Mild vasc congestion with small pl. effusions. Objective - Vital Signs/Intake and Output Vital Signs (last 24 hours): Temp Pulse Resp BP Pulse Ox 98.7 F 125 H 19 130/61 96 05/06/18 06:00 05/06/18 06:00 05/06/18 06:00 05/06/18 06:00 05/06/18 06:00 Intake and Output: 05/06/18 05/06/18 06:59 18:59 Intake Total 1740 Output Total 1350 Balance 390 - Medications Medications: Current Medications Albuterol/Ipratropium (Duoneb 3 Mg/0.5 Mg (3 Ml) Ud) 3 ml IH [id number] [facility] Last Admin: 05/06/18 07:22 Dose: 3 ml Albuterol/Ipratropium (Duoneb 3 Mg/0.5 Mg (3 Ml) Ud) 3 ml IH Q2H PRN PRN Reason: Shortness of Breath Digoxin (Digoxin) 0.125 mg PO 1400 [facility] Last Admin: 05/05/18 13:44 Dose: 0.125 mg Famotidine (Pepcid) 20 mg IVP DAILY [facility] Last Admin: 05/05/18 10:17 Dose: 20 mg Furosemide (Lasix) 40 mg IVP BID [facility] Last Admin: 05/05/18 17:48 Dose: 40 mg Haloperidol Lactate (Haldol) 2 mg IM Q4 PRN; Protocol PRN Reason: Agitation Ceftriaxone Sodium (Rocephin 1 Gram Ivpb) 1 gm in 100 mls @ 100 mls/hr IVPB DAILY [facility] PRN Reason: Protocol Last Admin: 05/05/18 10:18 Dose: 100 mls/hr Lactic Acid (Lac-Hydrin 12% Lotion (225 G)) 0 gm EXT BID [facility] Last Admin: 05/05/18 17:52 Dose: 1 appful Magnesium Oxide (Mag-Ox) 400 mg PO BID [facility] Last Admin: 05/05/18 17:48 Dose: 400 mg Methylprednisolone (Solu-Medrol) 40 mg IVP DAILY [facility] Last Admin: 05/05/18 10:18 Dose: 40 mg Metoprolol Tartrate (Lopressor) 5 mg IVP Q6 PRN PRN Reason: Heart rate Last Admin: 05/05/18 21:17 Dose: 5 mg Metoprolol Tartrate (Lopressor) 75 mg PO BID [facility] Warfarin Sodium (Coumadin) 2.5 mg PO 1800 [facility] PRN Reason: Protocol Last Admin: 05/05/18 17:48 Dose: 2.5 mg - Labs Labs: 05/06/18 06:00 05/06/18 06:00 PT 17.6 SECONDS (9.4-12.5) H 05/06/18 06:00 INR 1.52 05/06/18 06:00 APTT 42.0 Seconds (25.1-36.5) H 05/02/18 05:30 Assessment and Plan - Assessment and Plan (Free Text) Assessment: AMS CHF Pleural effusions Coagulopthy on admission, resolved AF with RVR , mod. to severe on echo with: Mod/sev. TR and sev. PH UTI Small pericardial effusion on echo Plan: Continue diuresis Increase PO metoprolol 75 BID. Warfarin 5 mg. today. Monitor INR daily. OOB to chair as lorna. Monitor: labs, I/O, sats., INRs, F/U CXR, etc Social Service Evaluation. Needs protected environment.
[2018-05-06] MEDS: cefTRIAXone 1 gm 1 GM/100 ML BAG IVPB SCH (09:34)
[2018-05-06] MEDS: MethylPREDNISolone 40 mg Vial IVP SCH (09:39)
[2018-05-06] MEDS: Magnesium Oxide 400 mg Tab UD PO SCH ×2 (09:40→18:05)
[2018-05-06] MEDS: Ammonium Lactate 12% Lotion (225 g) EXT SCH ×2 (09:45→17:37)
--- NOTE | 2018-05-06 13:33 | CP.PCM.PN ---
<Vidal Miranda - Last Filed: 05/06/18 17:31> Subjective - Date & Time of Evaluation Date of Evaluation: 05/06/18 Time of Evaluation: 13:25 - Subjective Subjective: Progress Note by Vidal Miranda PGY1 for Dr. Adams Pt was examined at bedside this morning. She had no overnight complaints. She denies any chest pain, shortness of breath, nausea, vomiting, headache, abdominal pain, diarrhea, dysuria. Objective - Vital Signs/Intake and Output Vital Signs (last 24 hours): Temp Pulse Resp BP Pulse Ox 98.1 F 87 18 103/58 L 96 05/06/18 12:00 05/06/18 12:00 05/06/18 12:00 05/06/18 12:00 05/06/18 06:00 Intake and Output: 05/06/18 05/06/18 06:59 18:59 Intake Total 1740 Output Total 1350 Balance 390 - Medications Medications: Current Medications Albuterol/Ipratropium (Duoneb 3 Mg/0.5 Mg (3 Ml) Ud) 3 ml IH [id number] [facility] Last Admin: 05/06/18 11:06 Dose: 3 ml Albuterol/Ipratropium (Duoneb 3 Mg/0.5 Mg (3 Ml) Ud) 3 ml IH Q2H PRN PRN Reason: Shortness of Breath Digoxin (Digoxin) 0.125 mg PO 1400 [facility] Last Admin: 05/05/18 13:44 Dose: 0.125 mg Famotidine (Pepcid) 20 mg PO DAILY [facility] Furosemide (Lasix) 40 mg IVP BID [facility] Last Admin: 05/06/18 09:39 Dose: 40 mg Haloperidol Lactate (Haldol) 2 mg IM Q4 PRN; Protocol PRN Reason: Agitation Ceftriaxone Sodium (Rocephin 1 Gram Ivpb) 1 gm in 100 mls @ 100 mls/hr IVPB DAILY [facility] PRN Reason: Protocol Last Admin: 05/06/18 09:34 Dose: 100 mls/hr Lactic Acid (Lac-Hydrin 12% Lotion (225 G)) 0 gm EXT BID [facility] Last Admin: 05/06/18 09:45 Dose: 1 appful Magnesium Oxide (Mag-Ox) 400 mg PO BID [facility] Last Admin: 05/06/18 09:40 Dose: 400 mg Methylprednisolone (Solu-Medrol) 40 mg IVP DAILY [facility] Last Admin: 05/06/18 09:39 Dose: 40 mg Metoprolol Tartrate (Lopressor) 5 mg IVP Q6 PRN PRN Reason: Heart rate Last Admin: 05/05/18 21:17 Dose: 5 mg Metoprolol Tartrate (Lopressor) 75 mg PO BID [facility] Last Admin: 05/06/18 09:40 Dose: 75 mg Warfarin Sodium (Coumadin) 2.5 mg PO 1800 [facility] PRN Reason: Protocol Last Admin: 05/05/18 17:48 Dose: 2.5 mg - Labs Labs: 05/06/18 06:00 05/06/18 06:00 PT 17.6 SECONDS (9.4-12.5) H 05/06/18 06:00 INR 1.52 05/06/18 06:00 APTT 42.0 Seconds (25.1-36.5) H 05/02/18 05:30 - Constitutional Appears: Well, No Acute Distress - Head Exam Head Exam: ATRAUMATIC, NORMOCEPHALIC - Neck Exam Neck Exam: Normal Inspection - Respiratory Exam Respiratory Exam: Clear to Ausculation Bilateral, NORMAL BREATHING PATTERN - Cardiovascular Exam Additional comments: systolic ejection murmur - GI/Abdominal Exam GI & Abdominal Exam: Soft, Normal Bowel Sounds. absent: Tenderness Additional comments: no suprapubic tenderness - Extremities Exam Extremities Exam: Pedal Edema - Neurological Exam Neurological Exam: Alert, Awake, Oriented x3 - Psychiatric Exam Psychiatric exam: Normal Affect, Normal Mood Assessment and Plan - Assessment and Plan (Free Text) Assessment: Pt is an 87 yo female with PMH of atrial fibrillation, HTN, hypothyroid, and macular degeneration who presented to the ED via EMS after finding her covered in her own after she activated her life support alert. Plan: Atrial Fibrillation with RVR - continue to monitor - continue lopressor 5mg IVP q6h prn. give if HR over 115 (hold parameters: BP< 100) - increase metoprolol 75mg BID PO, as per cardio - increase warfarin to 5mg once, as per cardio - INR 1.52, continue to monitor - continue digoxin 0.125 PO - Cardio Consulted, Dr. Woods, recs appreciated CHF - ECHO: EF 66%, severe - Chest CT: severe cardiomegaly, moderate pericardial effusion, moderate B/L pleural effusion - continue lasix 40mg IVP BID - I/O: +390ml, +1lb - Cardio Consulted, long Cota appreciated AMS - improved today, AAOx3 - likely secondary to UTI - CT Head: moderate atrophy, no acute findings - aspiration precautions - fall precautions - PT: recommends MOISES COPD - methylprednisolone 40mg IVP Daily - duonebs PRN - Pulmonology consulted, long [place] appreciated - Pt using O2 NC, BiPAP if needed Hypomagnesemia - Mg 2.1, resolved - continue to monitor Hypokalemia - K+ 4.3, resolved - continue to monitor UTI - pt asymptomatic - UA: protein, trace ketones, blood large, nitrate positive, LE trace - Urine culture: No growth - continue Rocephin 1 gram daily Failure to thrive - social consult: pt not interested in LTC, Precious's pending - case management: MOISES when medically stable - palliative care consulted Ppx - pepcid Pt seen, examined, assessment and plan discussed with Dr. Adams <Duyen Adams - Last Filed: 05/06/18 17:47> Objective - Vital Signs/Intake and Output Vital Signs (last 24 hours): Temp Pulse Resp BP Pulse Ox 98.1 F 87 18 103/58 L 96 05/06/18 12:00 05/06/18 12:00 05/06/18 12:00 05/06/18 12:00 05/06/18 06:00 Intake and Output: 05/06/18 05/06/18 06:59 18:59 Intake Total 1740 Output Total 1350 Balance 390 - Medications Medications: Current Medications Albuterol/Ipratropium (Duoneb 3 Mg/0.5 Mg (3 Ml) Ud) 3 ml IH [id number] [facility] Last Admin: 05/06/18 11:06 Dose: 3 ml Albuterol/Ipratropium (Duoneb 3 Mg/0.5 Mg (3 Ml) Ud) 3 ml IH Q2H PRN PRN Reason: Shortness of Breath Digoxin (Digoxin) 0.125 mg PO 1400 [facility] Last Admin: 05/06/18 14:49 Dose: 0.125 mg Famotidine (Pepcid) 20 mg PO DAILY [facility] Furosemide (Lasix) 40 mg IVP BID [facility] Last Admin: 05/06/18 09:39 Dose: 40 mg Haloperidol Lactate (Haldol) 2 mg IM Q4 PRN; Protocol PRN Reason: Agitation Ceftriaxone Sodium (Rocephin 1 Gram Ivpb) 1 gm in 100 mls @ 100 mls/hr IVPB DAILY [facility] PRN Reason: Protocol Last Admin: 05/06/18 09:34 Dose: 100 mls/hr Lactic Acid (Lac-Hydrin 12% Lotion (225 G)) 0 gm EXT BID [facility] Last Admin: 05/06/18 09:45 Dose: 1 appful Magnesium Oxide (Mag-Ox) 400 mg PO BID [facility] Last Admin: 05/06/18 09:40 Dose: 400 mg Methylprednisolone (Solu-Medrol) 40 mg IVP DAILY [facility] Last Admin: 05/06/18 09:39 Dose: 40 mg Metoprolol Tartrate (Lopressor) 5 mg IVP Q6 PRN PRN Reason: Heart rate Last Admin: 05/05/18 21:17 Dose: 5 mg Metoprolol Tartrate (Lopressor) 75 mg PO BID [facility] Last Admin: 05/06/18 09:40 Dose: 75 mg Warfarin Sodium (Coumadin) 2.5 mg PO 1800 [facility] PRN Reason: Protocol Last Admin: 05/05/18 17:48 Dose: 2.5 mg - Labs Labs: 05/06/18 06:00 05/06/18 06:00 PT 17.6 SECONDS (9.4-12.5) H 05/06/18 06:00 INR 1.52 05/06/18 06:00 APTT 42.0 Seconds (25.1-36.5) H 05/02/18 05:30 Attending/Attestation - Attestation I have personally seen and examined this patient.: Yes I have fully participated in the care of the patient.: Yes I have reviewed all pertinent clinical information, including history, physical exam and plan: Yes Notes (Text): 05/06/18 17:43 87 year old female with past medical history of CHF, afib, hypertension and COPD who presented with altered mental status possibly secondary to UTI. She is on ceftriaxone. Mental status has improved to baseline. She was also found to have Afib with RVR and acute on chronic diastolic CHF exacerbation. Continue with iv lasix. Metoprolol and coumadin doses were increased today. INR is 1.52 today. She is also on digoxin. Cardiology is following. PT evaluation was appreciated; recommended SAR. Duyen Adams MD Hospitalist.
[2018-05-06] MEDS: Digoxin 125 mcg (0.125 mg) Tab PO SCH (14:49)
[2018-05-07] MEDS: Albuterol-Ipratrop 3 mg / 0.5 (3 ml) UD IH SCH ×4 (01:22→16:14)
[2018-05-07 09:16] LABS: INR 2.05; PARTIAL THROMBOPLASTIN TIME 32.1 Seconds (25.1-36.5); PROTHROMBIN TIME 23.9 SECONDS (9.4-12.5)
[2018-05-07 09:30] LABS: BLOOD UREA NITROGEN 34 mg/dL (7-21); CALCIUM 8.6 mg/dL (8.4-10.5); GFR NON-AFRICAN AMERICAN > 60
[2018-05-07 09:55] LABS: ARTERIAL BLOOD GAS HEMOGLOBIN 10.8 g/dL (11.7-17.4); ARTERIAL BLOOD GAS O2 CAPACITY 14.7 mL/dl (16-24); ARTERIAL BLOOD GAS O2 CONTENT 14.4 ML/dl (15-23); ARTERIAL BLOOD GAS O2 SAT 98.2 % (95-98); ARTERIAL BLOOD GAS PCO2 62 mm/Hg (35-45); ARTERIAL BLOOD GAS TCO2 50.2 mmol.L (22-28)
--- NOTE | 2018-05-07 11:05 | RAD ---
HISTORY: COPD COMPARISON: Chest x-ray performed 05/03/18 TECHNIQUE: Chest, one view. FINDINGS: Examination limited by habitus. Patient's chin obscures evaluation of the right lung apex. LUNGS: Mild venous congestion. Moderate layering bilateral pleural effusions and associated consolidations. No definite pneumothorax. CARDIOVASCULAR: Marked cardiomegaly. Atherosclerotic calcifications. OSSEOUS STRUCTURES: Degenerative changes. VISUALIZED UPPER ABDOMEN: Unremarkable. OTHER FINDINGS: None. IMPRESSION: Cardiomegaly. Atherosclerotic calcifications. Mild pulmonary venous congestion. Moderate bilateral layering pleural effusions and associated consolidations.
[2018-05-07 11:12] LABS: ARTERIAL BLOOD GAS HCO3 48.3 mmol/L (21-28)
--- NOTE | 2018-05-07 13:15 | CP.PCM.PN ---
Addendum entered and electronically signed by Vidal Miranda DO 05/07/18 17:25: Coumadin 2.5 to be given 18:00 tonight Original Note: <Vidal Miranda - Last Filed: 05/07/18 17:16> Subjective - Date & Time of Evaluation Date of Evaluation: 05/07/18 Time of Evaluation: 13:13 - Subjective Subjective: Vidal Miranda PGY1 Progress Note for Dr. Adams Pt was examined at bedside this morning. She was very sleepy, and only arousable with heavy shaking. She was on bipap throughout the examination. Pt was unable to provide information for review of systems. Objective - Vital Signs/Intake and Output Vital Signs (last 24 hours): Temp Pulse Resp BP Pulse Ox 97.4 F L 59 L 18 115/57 L 96 05/07/18 12:00 05/07/18 12:00 05/07/18 12:00 05/07/18 12:00 05/07/18 00:01 Intake and Output: 05/07/18 05/07/18 06:59 18:59 Intake Total 1430 Output Total 1600 Balance -170 - Medications Medications: Current Medications Albuterol/Ipratropium (Duoneb 3 Mg/0.5 Mg (3 Ml) Ud) 3 ml IH [id number] [facility] Last Admin: 05/07/18 11:07 Dose: 3 ml Albuterol/Ipratropium (Duoneb 3 Mg/0.5 Mg (3 Ml) Ud) 3 ml IH Q2H PRN PRN Reason: Shortness of Breath Digoxin (Digoxin) 0.125 mg PO 1400 [facility] Last Admin: 05/06/18 14:49 Dose: 0.125 mg Famotidine (Pepcid) 20 mg PO DAILY [facility] Furosemide (Lasix) 40 mg IVP BID [facility] Last Admin: 05/06/18 18:02 Dose: 40 mg Haloperidol Lactate (Haldol) 2 mg IM Q4 PRN; Protocol PRN Reason: Agitation Lactic Acid (Lac-Hydrin 12% Lotion (225 G)) 0 gm EXT BID [facility] Last Admin: 05/06/18 17:37 Dose: 1 appful Magnesium Oxide (Mag-Ox) 400 mg PO BID [facility] Last Admin: 05/06/18 18:05 Dose: 400 mg Methylprednisolone (Solu-Medrol) 40 mg IVP DAILY [facility] Last Admin: 05/06/18 09:39 Dose: 40 mg Metoprolol Tartrate (Lopressor) 5 mg IVP Q6 PRN PRN Reason: Heart rate Last Admin: 05/05/18 21:17 Dose: 5 mg Metoprolol Tartrate (Lopressor) 75 mg PO BID [facility] Last Admin: 05/06/18 18:02 Dose: 75 mg Warfarin Sodium (Coumadin) 2.5 mg PO 1800 [facility]; Protocol Last Admin: 05/05/18 17:48 Dose: 2.5 mg - Labs Labs: 05/06/18 06:00 05/07/18 08:45 PT 23.9 SECONDS (9.4-12.5) H 05/07/18 08:45 INR 2.05 05/07/18 08:45 APTT 32.1 Seconds (25.1-36.5) 05/07/18 08:45 - Head Exam Head Exam: ATRAUMATIC, NORMOCEPHALIC - Respiratory Exam Respiratory Exam: absent: Rhonchi - Cardiovascular Exam Additional comments: systolic ejection murmur - GI/Abdominal Exam GI & Abdominal Exam: Soft. absent: Firm - Extremities Exam Extremities Exam: Pedal Edema - Neurological Exam Neurological Exam: absent: Alert, Awake Assessment and Plan - Assessment and Plan (Free Text) Assessment: Pt is an 87 yo female with PMH of atrial fibrillation, HTN, hypothyroid, and macular degeneration who presented to the ED via EMS after finding her covered in her own after she activated her life support alert Plan: Atrial Fibrillation with RVR - INR 2.05, continue to monitor - continue lopressor 5mg IVP q6h prn. give if HR over 115 (hold parameters: BP<100) - continue metoprolol 75mg BID PO, as per cardio - warfarin 2.5mg (not given today) - continue digoxin 0.125 PO - Cardio Consulted, Dr. Woods, recs appreciated COPD - pt using bipap - ABG 05/07: pH 7.5, pCO2 62, pO2 76 - CXR 05/07: cardiomegaly, atherosclerotic calcifications, mild pulmonary venous congestions, mod b/l pleural effusions and associated consolidations - taper methylprednisolone to 20mg IVP Daily - start brovana - start pulmicort - continue duonebs PRN - rpt ABG in am - monitor breathing - Pulmonology consulted, Dr Cratf, f/u recs CHF - ECHO: EF 66%, severe - Chest CT: severe cardiomegaly, moderate pericardial effusion, moderate B/L pleural effusion - I/O: +530ml - decrease lasix to 20mg IVP BID - Cardio Consulted, Dr. Woods, recs appreciated AMS - somnelent today, difficult to arrouse - likely secondary to UTI - CT Head: moderate atrophy, no acute findings - aspiration precautions - fall precautions - PT: recommends MOISES UTI - UA: protein, trace ketones, blood large, nitrate positive, LE trace - Urine culture: No growth - completed 3 days Rocephin 1g Failure to thrive - spoke with niece today, she provided advanced directive paperwork which is in pts chart - social consult: pt not interested in LTC, [facility]'s pending - case management: MOISES when medically stable - palliative care consulted, f/u recs Ppx - pepcid Pt seen, examined, assessment and plan discussed with Dr. Adams <Duyen Adams - Last Filed: 05/07/18 17:29> Objective - Vital Signs/Intake and Output Vital Signs (last 24 hours): Temp Pulse Resp BP Pulse Ox 97.4 F L 73 18 115/57 L 96 05/07/18 12:00 05/07/18 14:00 05/07/18 12:00 05/07/18 12:00 05/07/18 00:01 Intake and Output: 05/07/18 05/07/18 06:59 18:59 Intake Total 1430 Output Total 1600 Balance -170 - Medications Medications: Current Medications Albuterol/Ipratropium (Duoneb 3 Mg/0.5 Mg (3 Ml) Ud) 3 ml IH Q2H PRN PRN Reason: Shortness of Breath Arformoterol Tartrate (Brovana) 15 mcg IH [id number] [facility] Budesonide (Pulmicort Respules) 0.5 mg IH [id number] [facility] Digoxin (Digoxin) 0.125 mg PO 1400 [facility] Last Admin: 05/07/18 14:14 Dose: 0.125 mg Famotidine (Pepcid) 20 mg PO DAILY [facility] Furosemide (Lasix) 40 mg IVP DAILY [facility] Haloperidol Lactate (Haldol) 2 mg IM Q4 PRN; Protocol PRN Reason: Agitation Lactic Acid (Lac-Hydrin 12% Lotion (225 G)) 0 gm EXT BID [facility] Last Admin: 05/06/18 17:37 Dose: 1 appful Magnesium Oxide (Mag-Ox) 400 mg PO BID [facility] Last Admin: 05/06/18 18:05 Dose: 400 mg Methylprednisolone (Solu-Medrol) 30 mg IVP DAILY [facility] Metoprolol Tartrate (Lopressor) 5 mg IVP Q6 PRN PRN Reason: Heart rate Last Admin: 05/05/18 21:17 Dose: 5 mg Metoprolol Tartrate (Lopressor) 75 mg PO BID [facility] Last Admin: 05/06/18 18:02 Dose: 75 mg Warfarin Sodium (Coumadin) 2.5 mg PO 1800 [facility]; Protocol Last Admin: 05/05/18 17:48 Dose: 2.5 mg - Labs Labs: 05/06/18 06:00 05/07/18 08:45 PT 23.9 SECONDS (9.4-12.5) H 05/07/18 08:45 INR 2.05 05/07/18 08:45 APTT 32.1 Seconds (25.1-36.5) 05/07/18 08:45 Attending/Attestation - Attestation I have personally seen and examined this patient.: Yes I have fully participated in the care of the patient.: Yes I have reviewed all pertinent clinical information, including history, physical exam and plan: Yes Notes (Text): 05/07/18 17:25 87 year old female with past medical history of CHF, afib, hypertension and COPD who presented with altered mental status. She was found to have Afib with RVR and acute on chronic diastolic CHF exacerbation. She was started on iv lasix and is also on digoxin, metoprolol and coumadin. Cardiology is following. She was also given rocephin x 3 days for possible UTI. UCx is negative. This morning patient was lethargic. ABG was obtained and reviewed with ambulatory care coordinator who recommended to begin to decrease lasix and steroids. She is on duonebs and will add brovana/pulmicort. Bipap PRN. Repeat ABG in AM. Palliative care evaluation was appreciated as well. Patient is DNR/DNI. Prognosis is guarded. Anwar Angie, MD Hospitalist.
[2018-05-07] MEDS: Digoxin 125 mcg (0.125 mg) Tab PO SCH (14:14)
--- NOTE | 2018-05-07 14:16 | CP.PCM.CON ---
History of Present Illness - History of Present Illness History of Present Illness: Palliative consult requested by Dr Zaida Adams Reason: Goals of care and advance care planning 87 year old female who was brought to ED on 04/29/18 via EMS after her activating medical alert device. She was found on floor, altered mental status. EKG showed A Fib with RVR on arrival> Cardizem IV given CT of head 04/29 negative for acute findings. Chest x ray 04/29 showed severe cardiomegaly and moderate vascular congestion . CT of chest pulmonary venous congestion, moderate bilateral layering pleural effusions and consolidations. Labs 04/29 : Wbc 10.5, Hgb13.8, Plt 203,Na130, K 5.2, Bun 11, Creta 0.8, AST 40. Alt 31, [id number],albumin 3.4. Urine + large, nitrate, leukocytes. Blood/urine cultures negative. ECHO 04/30: mild LV hypertrophy, LF EF normal, moderate /severe aortic stenosis, severe tricuspid regurgitation, severe pulmonary hypertension PMHx: CHF, A Fib, COPD. PSHX: Unknown Family History: Non contributory Social History: Former smoker, no alcohol or drug use. Lives alone Advance Care Planning: Living will on chart, ALTON Arboleda or Beronica Clark Review of Systems: Short of breath, weakness, debility, lethargy, denied all other complaints Past Patient History - Infectious Disease Hx of Infectious Diseases: None - Past Social History Smoking Status: Unknown If Ever Smoked - CARDIAC Hx Cardiac Disorders: No (unknown) Hx Congestive Heart Failure: Yes (now) Hx Peripheral Edema: Yes (4+) - PULMONARY Hx Respiratory Disorders: No (unknown) - NEUROLOGICAL Hx Neurological Disorder: No (unknown) - HEENT Hx HEENT Problems: (unknown) - RENAL Hx Chronic Kidney Disease: (unknown) - ENDOCRINE/METABOLIC Hx Endocrine Disorders: (unknown) - HEMATOLOGICAL/ONCOLOGICAL Hx Blood Disorders: No (unknown) - INTEGUMENTARY Hx Dermatological Problems: (unknown) - MUSCULOSKELETAL/RHEUMATOLOGICAL Hx Musculoskeletal Disorders: (unknown) Hx Falls: No (unknown confused) - GASTROINTESTINAL Hx Gastrointestinal Disorders: (unknown) - GENITOURINARY/GYNECOLOGICAL Hx Genitourinary Disorders: (unknown) - PSYCHIATRIC Hx Substance Use: No - SURGICAL HISTORY Hx Surgeries: (unknown) - ANESTHESIA Hx Anesthesia: No Meds Allergies/Adverse Reactions: Allergies Allergy/AdvReac Type Severity Reaction Status Date / Time No Known Allergies Allergy Unverified 04/29/18 14:20 - Medications Medications: Current Medications Albuterol/Ipratropium (Duoneb 3 Mg/0.5 Mg (3 Ml) Ud) 3 ml IH [id number] [facility] Last Admin: 05/07/18 11:07 Dose: 3 ml Albuterol/Ipratropium (Duoneb 3 Mg/0.5 Mg (3 Ml) Ud) 3 ml IH Q2H PRN PRN Reason: Shortness of Breath Digoxin (Digoxin) 0.125 mg PO 1400 [facility] Last Admin: 05/06/18 14:49 Dose: 0.125 mg Famotidine (Pepcid) 20 mg PO DAILY [facility] Furosemide (Lasix) 40 mg IVP BID [facility] Last Admin: 05/06/18 18:02 Dose: 40 mg Haloperidol Lactate (Haldol) 2 mg IM Q4 PRN; Protocol PRN Reason: Agitation Lactic Acid (Lac-Hydrin 12% Lotion (225 G)) 0 gm EXT BID [facility] Last Admin: 05/06/18 17:37 Dose: 1 appful Magnesium Oxide (Mag-Ox) 400 mg PO BID [facility] Last Admin: 05/06/18 18:05 Dose: 400 mg Methylprednisolone (Solu-Medrol) 40 mg IVP DAILY [facility] Last Admin: 05/06/18 09:39 Dose: 40 mg Metoprolol Tartrate (Lopressor) 5 mg IVP Q6 PRN PRN Reason: Heart rate Last Admin: 05/05/18 21:17 Dose: 5 mg Metoprolol Tartrate (Lopressor) 75 mg PO BID [facility] Last Admin: 05/06/18 18:02 Dose: 75 mg Warfarin Sodium (Coumadin) 2.5 mg PO 1800 [facility]; Protocol Last Admin: 05/05/18 17:48 Dose: 2.5 mg Physical Exam - Constitutional Appears: Chronically Ill Additional comments: obese - Head Exam Head Exam: NORMAL INSPECTION - Eye Exam Eye Exam: Normal appearance, PERRL - ENT Exam ENT Exam: Mucous Membranes Moist - Neck Exam Neck exam: Positive for: Normal Inspection - Respiratory Exam Respiratory Exam: Decreased Breath Sounds, Rhonchi - GI/Abdominal Exam GI & Abdominal Exam: Hypoactive Bowel Sounds, Soft - Extremities Exam Extremities exam: Positive for: pedal pulses present - Neurological Exam Additional comments: lethargy oriented to self - Skin Skin Exam: Dry, Pallor - Additional Findings Additional findings: Palliative performance scale rating 30% Results - Vital Signs Recent Vital Signs: Last Vital Signs Temp 97.4 F L 05/07/18 12:00 Pulse 59 L 05/07/18 12:00 Resp 18 05/07/18 12:00 BP 115/57 L 05/07/18 12:00 Pulse Ox 96 05/07/18 00:01 - Labs Result Diagrams: 05/06/18 06:00 05/07/18 08:45 Labs: Laboratory Results - last 24 hr 05/06/18 05/06/18 05/06/18 07:40 11:06 16:16 PT INR APTT pCO2 pO2 HCO3 ABG pH ABG Total CO2 ABG O2 Saturation ABG O2 Content ABG Base Excess ABG Hemoglobin ABG Carboxyhemoglobin POC ABG HHb (Measured) ABG Methemoglobin ABG O2 Capacity Hgb O2 Saturation FiO2 Sodium Potassium Chloride Carbon Dioxide Anion Gap BUN Creatinine Est GFR ( Amer) Est GFR (Non-Af Amer) POC Glucose (mg/dL) 103 146 H 157 H Random Glucose Calcium 05/06/18 05/07/18 05/07/18 21:56 07:26 08:45 PT 23.9 H INR 2.05 APTT 32.1 pCO2 pO2 HCO3 ABG pH ABG Total CO2 ABG O2 Saturation ABG O2 Content ABG Base Excess ABG Hemoglobin ABG Carboxyhemoglobin POC ABG HHb (Measured) ABG Methemoglobin ABG O2 Capacity Hgb O2 Saturation FiO2 Sodium Potassium Chloride Carbon Dioxide Anion Gap BUN Creatinine Est GFR ( Amer) Est GFR (Non-Af Amer) POC Glucose (mg/dL) 135 H 87 Random Glucose Calcium 05/07/18 05/07/18 05/07/18 08:45 09:50 11:17 PT INR APTT pCO2 62 H pO2 76.0 L HCO3 48.3 H* ABG pH 7.50 H ABG Total CO2 50.2 H ABG O2 Saturation 98.2 H ABG O2 Content 14.4 L ABG Base Excess 21.9 H ABG Hemoglobin 10.8 L ABG Carboxyhemoglobin 2.6 H POC ABG HHb (Measured) 1.7 ABG Methemoglobin 1.3 ABG O2 Capacity 14.7 L Hgb O2 Saturation 94.4 L FiO2 30.0 Sodium 135 Potassium 4.0 Chloride 82 L Carbon Dioxide 50 H Anion Gap 7 L BUN 34 H Creatinine 0.7 Est GFR ( Amer) > 60 Est GFR (Non-Af Amer) > 60 POC Glucose (mg/dL) 91 Random Glucose 90 Calcium 8.6 Assessment & Plan - Assessment and Plan (Free Text) Assessment: 87 year old female with history of CHF,COPD who is admitted with A Fib/RVR, chronic respiratory acidosis, CHF/COPD exacerbation, bilateral pleural effusions and UTI. The pat has a Living will in which she states she does not want CPR/ mechanical ventilation or dialysis if her situation is irreversible or terminal. Later in the day her POA, Beronica met with myself and Dr Parisi. Beronica Clark (POA) spoke with medical team and was updated of patients medical condition.POA at bedised,terms of Living Will reviewed with Beronica. Beronica, Dr Parisi and myself verified with patient that she does not want CPR/intubation or dialysis. POLST directive explained and POA agreeable to initiating. POLST: DNR/DNI co mpleted, a copy is placed in the patients chart. Family also meeting with SW to discus discharge planning Time spent with patient and family in goals of care and advance care planning,50 minutes Plan: Goals of care and advance care planning, POLST DNR/DNI A Fib/RVR: Continue Digoxin, Lopressor, Metoprolol, Coumadin, monitor labs, cardiology following CHF:LasiX, monitor labs. COPD: continue methylprednislone, duonebs, Bipap support. UTI: Continue Rocephin AMS: improving
--- NOTE | 2018-05-07 14:50 | CP.PCM.PN ---
Subjective - Date & Time of Evaluation Date of Evaluation: 05/07/18 Time of Evaluation: 14:42 - Subjective Subjective: PULMONARY FOLLOW UP NOTE Patient seen and examined at bedside, lying in bed comfortably, in NAD, denies SOB, CP, cough, palpitations. Objective - Vital Signs/Intake and Output Vital Signs (last 24 hours): Temp Pulse Resp BP Pulse Ox 97.4 F L 59 L 18 115/57 L 96 05/07/18 12:00 05/07/18 12:00 05/07/18 12:00 05/07/18 12:00 05/07/18 00:01 Intake and Output: 05/07/18 05/07/18 06:59 18:59 Intake Total 1430 Output Total 1600 Balance -170 - Medications Medications: Current Medications Albuterol/Ipratropium (Duoneb 3 Mg/0.5 Mg (3 Ml) Ud) 3 ml IH [id number] [facility] Last Admin: 05/07/18 11:07 Dose: 3 ml Albuterol/Ipratropium (Duoneb 3 Mg/0.5 Mg (3 Ml) Ud) 3 ml IH Q2H PRN PRN Reason: Shortness of Breath Digoxin (Digoxin) 0.125 mg PO 1400 [facility] Last Admin: 05/07/18 14:14 Dose: 0.125 mg Famotidine (Pepcid) 20 mg PO DAILY [facility] Furosemide (Lasix) 40 mg IVP BID [facility] Last Admin: 05/06/18 18:02 Dose: 40 mg Haloperidol Lactate (Haldol) 2 mg IM Q4 PRN; Protocol PRN Reason: Agitation Lactic Acid (Lac-Hydrin 12% Lotion (225 G)) 0 gm EXT BID [facility] Last Admin: 05/06/18 17:37 Dose: 1 appful Magnesium Oxide (Mag-Ox) 400 mg PO BID [facility] Last Admin: 05/06/18 18:05 Dose: 400 mg Methylprednisolone (Solu-Medrol) 40 mg IVP DAILY [facility] Last Admin: 05/06/18 09:39 Dose: 40 mg Metoprolol Tartrate (Lopressor) 5 mg IVP Q6 PRN PRN Reason: Heart rate Last Admin: 05/05/18 21:17 Dose: 5 mg Metoprolol Tartrate (Lopressor) 75 mg PO BID [facility] Last Admin: 05/06/18 18:02 Dose: 75 mg Warfarin Sodium (Coumadin) 2.5 mg PO 1800 [facility]; Protocol Last Admin: 05/05/18 17:48 Dose: 2.5 mg - Labs Labs: 05/06/18 06:00 05/07/18 08:45 PT 23.9 SECONDS (9.4-12.5) H 05/07/18 08:45 INR 2.05 05/07/18 08:45 APTT 32.1 Seconds (25.1-36.5) 05/07/18 08:45 - Constitutional Appears: Non-toxic, No Acute Distress - Head Exam Head Exam: NORMAL INSPECTION - Eye Exam Eye Exam: Normal appearance - ENT Exam ENT Exam: Mucous Membranes Moist - Neck Exam Neck Exam: Full ROM - Respiratory Exam Respiratory Exam: Clear to Ausculation Bilateral, NORMAL BREATHING PATTERN - Cardiovascular Exam Cardiovascular Exam: REGULAR RHYTHM, +S1, +S2 - GI/Abdominal Exam GI & Abdominal Exam: Soft, Normal Bowel Sounds - Extremities Exam Extremities Exam: Pedal Edema - Neurological Exam Neurological Exam: Alert, Awake - Psychiatric Exam Psychiatric exam: Normal Affect - Skin Skin Exam: Normal Color, Warm Assessment and Plan - Assessment and Plan (Free Text) Assessment: 87yo female with chronic resp acidosis, COPD exacerbation, CHF exacerbation Hypercapnia, Chronic compensated Resp Acidosis COPD exacerbation CHF exacerbation Pleural Effusions ?Dementia - Currently the patient is afebrile, BP stable, comfortable in NAD, AAOx2, lying bed in comfortably - Labs, imaging, chart reviewed - ABG today reveals metabolic alkalosis, and resp acidosis - BIPAP ONLY as needed, and at night; cont with supp o2, goal sat 90% - Duvince PRN - Pulmicort - Brovana - switch Solumedrol 40mg IV to Prednisone 40mg PO daily with taper - Would switch Lasix IV to Lasix 40mg PO daily - follow up cardiology - rate control, A/C as per cardiology - Patient seen by palliative Care, POLST: DNR/DNI signed - GI ppx - DVT ppx - outpatient pulm follow up
[2018-05-07] MEDS: Ammonium Lactate 12% Lotion (225 g) EXT SCH (17:23)
[2018-05-07] MEDS: Magnesium Oxide 400 mg Tab UD PO SCH (17:24)
[2018-05-07] MEDS: Arformoterol 15 mcg/2 ml Inh Sol IH SCH (19:44)
[2018-05-07] MEDS: Budesonide 0.5 mg/2 ml Inhal Susp UD IH SCH (19:44)
[2018-05-07] MEDS ORDERED: Arformoterol 15 mcg/2 ml Inh Sol IH SCH (20:00)
[2018-05-08 06:24] LABS: INR 2.16; PROTHROMBIN TIME 25.2 SECONDS (9.4-12.5)
[2018-05-08 06:29] LABS: ARTERIAL BLOOD GAS HEMOGLOBIN 11.9 g/dL (11.7-17.4); ARTERIAL BLOOD GAS O2 CAPACITY 16.2 mL/dl (16-24); ARTERIAL BLOOD GAS O2 SAT 98.5 % (95-98); ARTERIAL BLOOD GAS PH 7.45 (7.35-7.45); ARTERIAL BLOOD GAS TCO2 56.6 mmol.L (22-28)
[2018-05-08 06:42] LABS: HEMOGLOBIN 12.5 g/dL (12.0-16.0); MEAN CELL VOLUME 87.3 fl (80.0-105.0); MEAN CORPUSCULAR HEMOGLOBIN 26.9 pg (25.0-35.0); MEAN CORPUSCULAR HGB CONC 30.8 g/dl (31.0-37.0); MEAN PLATELET VOLUME 10.3 fl (7.0-11.0); RBC 4.65 10^6/uL (3.5-6.1); RED CELL DISTRIBUTION WIDTH 17.5 % (11.5-14.5); WHITE BLOOD COUNT 8.8 10^3/ul (4.5-11.0)
[2018-05-08 06:44] LABS: ARTERIAL BLOOD GAS PCO2 78 mm/Hg (35-45)
[2018-05-08 06:45] LABS: ARTERIAL BLOOD GAS HCO3 54.2 mmol/L (21-28)
[2018-05-08 06:58] LABS: BLOOD UREA NITROGEN 33 mg/dL (7-21); CALCIUM 8.3 mg/dL (8.4-10.5); GFR NON-AFRICAN AMERICAN > 60
[2018-05-08] MEDS: Budesonide 0.5 mg/2 ml Inhal Susp UD IH SCH ×2 (07:08→19:42)
[2018-05-08] MEDS: Arformoterol 15 mcg/2 ml Inh Sol IH SCH ×2 (07:08→19:39)
[2018-05-08] MEDS: Potassium Chloride 20 mEq ER Tab PO ONE ×2 (07:50→10:51)
[2018-05-08] MEDS ORDERED: MethylPREDNISolone 40 mg Vial IVP SCH (10:00)
[2018-05-08] MEDS: Potassium Chloride 40 mEq/30 ml LIQ UD PO SCH ×2 (10:21→17:36)
[2018-05-08] MEDS: Magnesium Oxide 400 mg Tab UD PO SCH ×2 (10:26→17:35)
[2018-05-08] MEDS: Ammonium Lactate 12% Lotion (225 g) EXT SCH (10:34)
--- NOTE | 2018-05-08 13:39 | CP.PCM.PN ---
<Vidal Miranda - Last Filed: 05/08/18 17:13> Subjective - Date & Time of Evaluation Date of Evaluation: 05/08/18 Time of Evaluation: 13:35 - Subjective Subjective: Vidal Miranda PGY1 Progress note for Dr. Adams Pt was examined at bedside. She was sleepy but arousable. She was responsive to questions. She had no complaints today. She denied any chest pain, shortness of breath, abdominal pain, nausea, vomiting, diarrhea. Objective - Vital Signs/Intake and Output Vital Signs (last 24 hours): Temp Pulse Resp BP Pulse Ox 97.4 F L 57 L 18 113/66 95 05/08/18 12:00 05/08/18 12:00 05/08/18 12:00 05/08/18 12:00 05/08/18 06:00 Intake and Output: 05/08/18 05/08/18 06:59 18:59 Intake Total 30 Output Total 550 Balance -520 - Medications Medications: Current Medications Albuterol/Ipratropium (Duoneb 3 Mg/0.5 Mg (3 Ml) Ud) 3 ml IH Q2H PRN PRN Reason: Shortness of Breath Arformoterol Tartrate (Brovana) 15 mcg IH [id number] [facility] Last Admin: 05/08/18 07:08 Dose: 15 mcg Budesonide (Pulmicort Respules) 0.5 mg IH [id number] [facility] Last Admin: 05/08/18 07:08 Dose: 0.5 mg Digoxin (Digoxin) 0.125 mg PO 1400 [facility] Last Admin: 05/07/18 14:14 Dose: 0.125 mg Famotidine (Pepcid) 20 mg PO DAILY [facility] Last Admin: 05/08/18 10:37 Dose: 20 mg Furosemide (Lasix) 40 mg PO DAILY [facility] Haloperidol Lactate (Haldol) 2 mg IM Q4 PRN; Protocol PRN Reason: Agitation Lactic Acid (Lac-Hydrin 12% Lotion (225 G)) 0 gm EXT BID [facility] Last Admin: 05/08/18 10:34 Dose: 1 appful Magnesium Oxide (Mag-Ox) 400 mg PO BID [facility] Last Admin: 05/08/18 10:26 Dose: 400 mg Methylprednisolone (Solu-Medrol) 30 mg IVP DAILY [facility] Last Admin: 05/08/18 10:26 Dose: 30 mg Methylprednisolone (Medrol) 20 mg PO ONCE ONE Stop: 05/09/18 10:01 Metoprolol Tartrate (Lopressor) 5 mg IVP Q6 PRN PRN Reason: Heart rate Last Admin: 05/05/18 21:17 Dose: 5 mg Metoprolol Tartrate (Lopressor) 75 mg PO BID [facility] Last Admin: 05/08/18 10:25 Dose: 75 mg Potassium Chloride (Potassium Chloride Oral Soln) 40 meq PO BID [facility] Stop: 05/08/18 18:01 Last Admin: 05/08/18 10:21 Dose: 40 meq Warfarin Sodium (Coumadin) 2.5 mg PO 1800 [facility]; Protocol Last Admin: 05/07/18 18:29 Dose: 2.5 mg - Labs Labs: 05/08/18 06:00 05/08/18 06:00 PT 25.2 SECONDS (9.4-12.5) H 05/08/18 06:00 INR 2.16 05/08/18 06:00 APTT 32.1 Seconds (25.1-36.5) 05/07/18 08:45 - Constitutional Appears: Well, No Acute Distress - Head Exam Head Exam: ATRAUMATIC, NORMOCEPHALIC - Respiratory Exam Respiratory Exam: Clear to Ausculation Bilateral, NORMAL BREATHING PATTERN - Cardiovascular Exam Additional comments: systolic ejection murmur - GI/Abdominal Exam GI & Abdominal Exam: Soft, Normal Bowel Sounds. absent: Tenderness - Extremities Exam Extremities Exam: Pedal Edema - Neurological Exam Neurological Exam: Awake, Oriented x3 Assessment and Plan - Assessment and Plan (Free Text) Plan: Atrial Fibrillation with RVR - INR 2.16, continue to monitor - continue lopressor 5mg IVP q6h prn. give if HR over 115 (hold parameters: BP<100) - continue metoprolol 75mg BID PO, as per cardio - continue warfarin 2.5mg - continue digoxin 0.125 PO - Cardio Consulted, Dr. Woods, recs appreciated COPD - pt did not use bipap last night due to discomfort - ABG 05/08: pH 7.45, pCO2 78, pO2 87 - CXR 05/07: cardiomegaly, atherosclerotic calcifications, mild pulmonary venous congestions, mod b/l pleural effusions and associated consolidations - change methylprednisolone to PO, taper, as per pulm - continue brovana, as per pulm - continue pulmicort, as per pulm - continue duonebs PRN - rpt ABG in am - start bipap PRN, encourage use overnight - Pulmonology consulted, Dr Craft, recs appreciated CHF - ECHO: EF 66%, severe - Chest CT: severe cardiomegaly, moderate pericardial effusion, moderate B/L pleural effusion - I/O: -1410ml +2lbs - start lasix to 40 PO daily, as per cardio - Cardio Consulted, Dr. Woods, recs appreciated AMS - sleepy today but arousable - likely secondary to UTI - CT Head: moderate atrophy, no acute findings - aspiration precautions - fall precautions - PT: recommends [facility] Hypokalemia - K+ 3.4 - repleted, continue to monitor UTI - UA: protein, trace ketones, blood large, nitrate positive, LE trace - Urine culture: No growth - completed 3 days Rocephin 1g Failure to thrive - POLST: DNR/DNI confirmed - social consult: pt not interested in LTC, [facility] pending - case management: [facility] when medically stable - palliative care consulted, recs appreciated Ppx - pepcid Pt seen, examined, assessment and plan discussed with Dr. Adams <Duyen Adams - Last Filed: 05/08/18 17:29> Objective - Vital Signs/Intake and Output Vital Signs (last 24 hours): Temp Pulse Resp BP Pulse Ox 97.8 F 84 18 101/58 L 95 05/08/18 17:23 05/08/18 17:23 05/08/18 17:23 05/08/18 17:23 05/08/18 06:00 Intake and Output: 05/08/18 05/08/18 06:59 18:59 Intake Total 30 Output Total 550 Balance -520 - Medications Medications: Current Medications Albuterol/Ipratropium (Duoneb 3 Mg/0.5 Mg (3 Ml) Ud) 3 ml IH Q2H PRN PRN Reason: Shortness of Breath Arformoterol Tartrate (Brovana) 15 mcg IH [id number] [facility] Last Admin: 05/08/18 07:08 Dose: 15 mcg Budesonide (Pulmicort Respules) 0.5 mg IH [id number] [facility] Last Admin: 05/08/18 07:08 Dose: 0.5 mg Digoxin (Digoxin) 0.125 mg PO 1400 [facility] Last Admin: 05/08/18 14:11 Dose: 0.125 mg Famotidine (Pepcid) 20 mg PO DAILY [facility] Last Admin: 05/08/18 10:37 Dose: 20 mg Furosemide (Lasix) 40 mg PO DAILY [facility] Haloperidol Lactate (Haldol) 2 mg IM Q4 PRN; Protocol PRN Reason: Agitation Lactic Acid (Lac-Hydrin 12% Lotion (225 G)) 0 gm EXT BID [facility] Last Admin: 05/08/18 10:34 Dose: 1 appful Magnesium Oxide (Mag-Ox) 400 mg PO BID [facility] Last Admin: 05/08/18 10:26 Dose: 400 mg Methylprednisolone (Solu-Medrol) 30 mg IVP DAILY [facility] Last Admin: 05/08/18 10:26 Dose: 30 mg Methylprednisolone (Medrol) 20 mg PO ONCE ONE Stop: 05/09/18 10:01 Metoprolol Tartrate (Lopressor) 5 mg IVP Q6 PRN PRN Reason: Heart rate Last Admin: 05/05/18 21:17 Dose: 5 mg Metoprolol Tartrate (Lopressor) 75 mg PO BID [facility] Last Admin: 05/08/18 10:25 Dose: 75 mg Potassium Chloride (Potassium Chloride Oral Soln) 40 meq PO BID [facility] Stop: 05/08/18 18:01 Last Admin: 05/08/18 10:21 Dose: 40 meq Warfarin Sodium (Coumadin) 2.5 mg PO 1800 [facility]; Protocol Last Admin: 05/07/18 18:29 Dose: 2.5 mg - Labs Labs: 05/08/18 06:00 05/08/18 06:00 PT 25.2 SECONDS (9.4-12.5) H 05/08/18 06:00 INR 2.16 05/08/18 06:00 APTT 32.1 Seconds (25.1-36.5) 05/07/18 08:45 - Cardiovascular Exam Cardiovascular Exam: Irregular Rhythm, +S1, +S2 - Extremities Exam Extremities Exam: absent: Tenderness Attending/Attestation - Attestation I have personally seen and examined this patient.: Yes I have fully participated in the care of the patient.: Yes I have reviewed all pertinent clinical information, including history, physical exam and plan: Yes Notes (Text): 05/08/18 17:25 87 year old female with past medical history of CHF, afib, hypertension and COPD who presented with altered mental status. She was found to have Afib with RVR and acute on chronic diastolic CHF exacerbation. She was started on iv lasix and is also on digoxin, metoprolol and coumadin. Discussed with cardiology today and lasix is switched to po. Hospital course was also complicated with hypercapneic respiratory distress / COPD last week. Patient is on bipap HS which she refused last night. ABG shows increased CO2 retention this morning; bipap re-applied. Encouraged bipap HS. Repeat ABG in AM. She is on duonebs, brovana and pulmicort. Steroids switched to po today. She was also given rocephin x 3 days for possible UTI. UCx is negative. Will replete and repeat potassium. Palliative care evaluation was appreciated as well. Patient is DNR/DNI. Prognosis is guarded. Duyen Adams MD Hospitalist.
[2018-05-08] MEDS: Digoxin 125 mcg (0.125 mg) Tab PO SCH (14:11)
--- NOTE | 2018-05-08 19:42 | CP.PCM.PN ---
<Gamaliel Dior - Last Filed: 05/08/18 19:35> Subjective - Date & Time of Evaluation Date of Evaluation: 05/08/18 Time of Evaluation: 19:36 - Subjective Subjective: PGY-[address] Gomez CC: Vtach S: Got paged for 6 beats of VTach. RN placed Call to Dr. Green, Awaiting a call back patient seen and examined at bedside she is asymptomatic, denied chest pain, palpitations, headache, SOB O: VS stable Gen: NAD HEENT: EOMI Card: irregular s1 s2 - rate controlled Pulm: CTA b/l no w/r/r A/P: Non sustained Vtach, asymp Questionable from med Questionable from electrolyte abn - BMP, replete as needed - continue observe - card called Objective - Vital Signs/Intake and Output Vital Signs (last 24 hours): Temp Pulse Resp BP Pulse Ox 97.8 F 96 H 18 101/58 L 95 05/08/18 17:23 05/08/18 18:00 05/08/18 17:23 05/08/18 17:41 05/08/18 06:00 Intake and Output: 05/08/18 05/09/18 18:59 06:59 Intake Total 360 Output Total 1200 Balance -840 - Medications Medications: Current Medications Albuterol/Ipratropium (Duoneb 3 Mg/0.5 Mg (3 Ml) Ud) 3 ml IH Q2H PRN PRN Reason: Shortness of Breath Arformoterol Tartrate (Brovana) 15 mcg IH [id number] [facility] Last Admin: 05/08/18 07:08 Dose: 15 mcg Budesonide (Pulmicort Respules) 0.5 mg IH [id number] [facility] Last Admin: 05/08/18 07:08 Dose: 0.5 mg Digoxin (Digoxin) 0.125 mg PO 1400 [facility] Last Admin: 05/08/18 14:11 Dose: 0.125 mg Famotidine (Pepcid) 20 mg PO DAILY [facility] Last Admin: 05/08/18 10:37 Dose: 20 mg Furosemide (Lasix) 40 mg PO DAILY [facility] Haloperidol Lactate (Haldol) 2 mg IM Q4 PRN; Protocol PRN Reason: Agitation Lactic Acid (Lac-Hydrin 12% Lotion (225 G)) 0 gm EXT BID [facility] Last Admin: 05/08/18 10:34 Dose: 1 appful Magnesium Oxide (Mag-Ox) 400 mg PO BID [facility] Last Admin: 05/08/18 17:35 Dose: 400 mg Methylprednisolone (Solu-Medrol) 30 mg IVP DAILY [facility] Last Admin: 05/08/18 10:26 Dose: 30 mg Methylprednisolone (Medrol) 20 mg PO ONCE ONE Stop: 05/09/18 10:01 Metoprolol Tartrate (Lopressor) 5 mg IVP Q6 PRN PRN Reason: Heart rate Last Admin: 05/05/18 21:17 Dose: 5 mg Metoprolol Tartrate (Lopressor) 75 mg PO BID [facility] Last Admin: 05/08/18 17:41 Dose: 75 mg Warfarin Sodium (Coumadin) 2.5 mg PO 1800 [facility]; Protocol Last Admin: 05/08/18 17:41 Dose: 2.5 mg - Labs Labs: 05/08/18 06:00 05/08/18 06:00 PT 25.2 SECONDS (9.4-12.5) H 05/08/18 06:00 INR 2.16 05/08/18 06:00 APTT 32.1 Seconds (25.1-36.5) 05/07/18 08:45 <Kat Gomez - Last Filed: 05/09/18 00:42> Objective - Vital Signs/Intake and Output Vital Signs (last 24 hours): Temp Pulse Resp BP Pulse Ox 98.6 F 102 H 19 103/43 L 92 L 05/08/18 23:51 05/08/18 23:51 05/08/18 23:51 05/08/18 23:51 05/08/18 23:51 Intake and Output: 05/08/18 05/09/18 18:59 06:59 Intake Total 360 Output Total 1200 Balance -840 - Medications Medications: Current Medications Albuterol/Ipratropium (Duoneb 3 Mg/0.5 Mg (3 Ml) Ud) 3 ml IH Q2H PRN PRN Reason: Shortness of Breath Arformoterol Tartrate (Brovana) 15 mcg IH [id number] [facility] Last Admin: 05/08/18 19:39 Dose: 15 mcg Budesonide (Pulmicort Respules) 0.5 mg IH [id number] [facility] Last Admin: 05/08/18 19:42 Dose: 0.5 mg Digoxin (Digoxin) 0.125 mg PO 1400 [facility] Last Admin: 05/08/18 14:11 Dose: 0.125 mg Famotidine (Pepcid) 20 mg PO DAILY [facility] Last Admin: 05/08/18 10:37 Dose: 20 mg Furosemide (Lasix) 40 mg PO DAILY [facility] Haloperidol Lactate (Haldol) 2 mg IM Q4 PRN; Protocol PRN Reason: Agitation Lactic Acid (Lac-Hydrin 12% Lotion (225 G)) 0 gm EXT BID [facility] Last Admin: 05/08/18 10:34 Dose: 1 appful Magnesium Oxide (Mag-Ox) 400 mg PO BID [facility] Last Admin: 05/08/18 17:35 Dose: 400 mg Methylprednisolone (Solu-Medrol) 30 mg IVP DAILY [facility] Last Admin: 05/08/18 10:26 Dose: 30 mg Methylprednisolone (Medrol) 20 mg PO ONCE ONE Stop: 05/09/18 10:01 Metoprolol Tartrate (Lopressor) 5 mg IVP Q6 PRN PRN Reason: Heart rate Last Admin: 05/05/18 21:17 Dose: 5 mg Metoprolol Tartrate (Lopressor) 75 mg PO BID [facility] Last Admin: 05/08/18 17:41 Dose: 75 mg Warfarin Sodium (Coumadin) 2.5 mg PO 1800 [facility]; Protocol Last Admin: 05/08/18 17:41 Dose: 2.5 mg - Labs Labs: 05/08/18 06:00 05/08/18 19:50 PT 25.2 SECONDS (9.4-12.5) H 05/08/18 06:00 INR 2.16 05/08/18 06:00 APTT 32.1 Seconds (25.1-36.5) 05/07/18 08:45 Attending/Attestation - Attestation I have personally seen and examined this patient.: Yes I have fully participated in the care of the patient.: Yes I have reviewed all pertinent clinical information, including history, physical exam and plan: Yes
[2018-05-08 20:27] LABS: BLOOD UREA NITROGEN 33 mg/dL (7-21); CALCIUM 8.1 mg/dL (8.4-10.5); GFR NON-AFRICAN AMERICAN > 60
[2018-05-09 06:31] LABS: ARTERIAL BLOOD GAS HEMOGLOBIN 11.4 g/dL (11.7-17.4); ARTERIAL BLOOD GAS O2 CAPACITY 15.7 mL/dl (16-24); ARTERIAL BLOOD GAS O2 CONTENT 15.5 ML/dl (15-23); ARTERIAL BLOOD GAS PCO2 68 mm/Hg (35-45); ARTERIAL BLOOD GAS PH 7.52 (7.35-7.45); ARTERIAL BLOOD GAS TCO2 57.6 mmol.L (22-28)
[2018-05-09 06:34] VITALS: O2SAT 97
[2018-05-09 07:05] LABS: ARTERIAL BLOOD GAS HCO3 55.5 mmol/L (21-28)
[2018-05-09 07:29] LABS: HEMOGLOBIN 12.1 g/dL (12.0-16.0); MEAN CELL VOLUME 86.4 fl (80.0-105.0); MEAN CORPUSCULAR HEMOGLOBIN 27.1 pg (25.0-35.0); MEAN CORPUSCULAR HGB CONC 31.3 g/dl (31.0-37.0); RBC 4.47 10^6/uL (3.5-6.1); RED CELL DISTRIBUTION WIDTH 17.5 % (11.5-14.5); WHITE BLOOD COUNT 7.8 10^3/ul (4.5-11.0)
[2018-05-09 07:34] LABS: INR 2.79; PROTHROMBIN TIME 32.8 SECONDS (9.4-12.5)
[2018-05-09 07:48] LABS: TROPONIN I 0.04 ng/mL
[2018-05-09] MEDS: Arformoterol 15 mcg/2 ml Inh Sol IH SCH (07:51)
[2018-05-09] MEDS: Budesonide 0.5 mg/2 ml Inhal Susp UD IH SCH (07:51)
[2018-05-09 08:02] LABS: BLOOD UREA NITROGEN 34 mg/dL (7-21); CALCIUM 8.2 mg/dL (8.4-10.5); GFR NON-AFRICAN AMERICAN > 60
--- NOTE | 2018-05-09 08:33 | CP.PCM.PN ---
Subjective - Date & Time of Evaluation Date of Evaluation: 05/09/18 Time of Evaluation: 07:00 - Subjective Subjective: Stable on 2R. No CP or SOB. Alert. V/S noted. AF, mod VR. PE: Lungs: few rhonchi Cor: irreg S1S2, RICHARD Abd.: soft Ext.: + edema Neuro.: alert I/O = 360/1700 recorded Labs: INR = 2.79, K+= 4.0, CR.= 0.7 BC X2 NG at 5 days Urine C+S: NG CXR 05/03 noted: Mild vasc congestion with small pl. effusions. Objective - Vital Signs/Intake and Output Vital Signs (last 24 hours): Temp Pulse Resp BP Pulse Ox 98.5 F 90 19 101/52 L 97 05/09/18 06:00 05/09/18 06:00 05/09/18 06:00 05/09/18 06:00 05/09/18 06:00 Intake and Output: 05/09/18 05/09/18 06:59 18:59 Intake Total 0 Output Total 500 Balance -500 - Medications Medications: Current Medications Albuterol/Ipratropium (Duoneb 3 Mg/0.5 Mg (3 Ml) Ud) 3 ml IH Q2H PRN PRN Reason: Shortness of Breath Arformoterol Tartrate (Brovana) 15 mcg IH [id number] [facility] Last Admin: 05/09/18 07:51 Dose: 15 mcg Budesonide (Pulmicort Respules) 0.5 mg IH [id number] [facility] Last Admin: 05/09/18 07:51 Dose: 0.5 mg Digoxin (Digoxin) 0.125 mg PO 1400 [facility] Last Admin: 05/08/18 14:11 Dose: 0.125 mg Famotidine (Pepcid) 20 mg PO DAILY [facility] Last Admin: 05/08/18 10:37 Dose: 20 mg Furosemide (Lasix) 40 mg PO DAILY [facility] Haloperidol Lactate (Haldol) 2 mg IM Q4 PRN; Protocol PRN Reason: Agitation Lactic Acid (Lac-Hydrin 12% Lotion (225 G)) 0 gm EXT BID [facility] Last Admin: 05/08/18 10:34 Dose: 1 appful Magnesium Oxide (Mag-Ox) 400 mg PO BID [facility] Last Admin: 05/08/18 17:35 Dose: 400 mg Methylprednisolone (Solu-Medrol) 30 mg IVP DAILY [facility] Last Admin: 05/08/18 10:26 Dose: 30 mg Methylprednisolone (Medrol) 20 mg PO ONCE ONE Stop: 05/09/18 10:01 Metoprolol Tartrate (Lopressor) 5 mg IVP Q6 PRN PRN Reason: Heart rate Last Admin: 05/05/18 21:17 Dose: 5 mg Metoprolol Tartrate (Lopressor) 75 mg PO BID [facility] Last Admin: 05/08/18 17:41 Dose: 75 mg Warfarin Sodium (Coumadin) 2.5 mg PO 1800 [facility]; Protocol Last Admin: 05/08/18 17:41 Dose: 2.5 mg - Labs Labs: 05/09/18 07:15 05/09/18 07:15 PT 32.8 SECONDS (9.4-12.5) H 05/09/18 07:15 INR 2.79 05/09/18 07:15 APTT 32.1 Seconds (25.1-36.5) 05/07/18 08:45 Assessment and Plan - Assessment and Plan (Free Text) Assessment: AMS CHF Pleural effusions, moderate bilat 05/07 CXR Coagulopthy on admission, resolved AF with RVR , mod. to severe on echo with: Mod/sev. TR and sev. PH UTI Small pericardial effusion on echo Meabolic alkalosis DNR/DNI noted Plan: Hold Lasix today Continue metoprolol 75 BID. Hold warfarin today. Monitor INR daily. OOB to chair as lorna. Monitor: labs, I/O, sats., INRs etc Social Service Evaluation. Needs protected environment.
[2018-05-09] MEDS: Magnesium Oxide 400 mg Tab UD PO SCH (09:45)
[2018-05-09] MEDS: Ammonium Lactate 12% Lotion (225 g) EXT SCH (09:50)
[2018-05-09 12:05] VITALS: BP 100/52; RESP 18; TEMP 98
[2018-05-09] MEDS: Digoxin 125 mcg (0.125 mg) Tab PO SCH (14:35)
[2018-05-09 14:42] VITALS: PULSE 92
[2018-05-09 15:07] VITALS: PULSE 91
--- NOTE | 2018-05-09 17:29 | CP.PCM.DIS ---
<Vidal Miranda - Last Filed: 05/09/18 17:21> Provider - Provider Date of Admission: 04/29/18 20:14 Attending physician: Duyen Adams MD Primary care physician: Andrei Purvis MD Consults: Pulm Cardio Palliative Time Spent in preparation of Discharge (in minutes): 70 Hospital Course - Lab Results Lab Results: Micro Results 04/29/18 13:40 Blood Blood Culture - Final NO GROWTH AFTER 5 DAYS 04/29/18 13:40 Blood Gram Stain - Final TEST NOT PERFORMED 04/29/18 17:57 Blood Blood Culture - Final NO GROWTH AFTER 5 DAYS 04/29/18 17:57 Blood Gram Stain - Final TEST NOT PERFORMED 04/29/18 22:43 Throat Group A Strep Throat Culture - Final NO BETA STREP GROUP A ISOLATED. 04/29/18 19:15 Urine Urine Culture - Final No Growth (<1,000 CFU/ML) Most Recent Lab Values WBC 7.8 10^3/ul (4.5-11.0) 05/09/18 07:15 RBC 4.47 10^6/uL (3.5-6.1) 05/09/18 07:15 Hgb 12.1 g/dL (12.0-16.0) 05/09/18 07:15 Hct 38.6 % (36.0-48.0) 05/09/18 07:15 MCV 86.4 fl (80.0-105.0) 05/09/18 07:15 MCH 27.1 pg (25.0-35.0) 05/09/18 07:15 MCHC 31.3 g/dl (31.0-37.0) 05/09/18 07:15 RDW 17.5 % (11.5-14.5) H 05/09/18 07:15 Plt Count 178 10^3/uL (120.0-450.0) 05/09/18 07:15 MPV 10.0 fl (7.0-11.0) 05/09/18 07:15 Gran % 86.1 % (50.0-68.0) H 05/06/18 06:00 Lymph % (Auto) 9.1 % (22.0-35.0) L 05/06/18 06:00 [place] % (Auto) 4.7 % (1.0-6.0) 05/06/18 06:00 Eos % (Auto) 0.1 % (1.5-5.0) L 05/06/18 06:00 Baso % (Auto) 0.0 % (0.0-3.0) 05/06/18 06:00 Gran # 7.13 (1.4-6.5) H 05/06/18 06:00 Lymph # (Auto) 0.8 (1.2-3.4) L 05/06/18 06:00 [place] # (Auto) 0.4 (0.1-0.6) 05/06/18 06:00 Eos # (Auto) 0.0 (0.0-0.7) 05/06/18 06:00 Baso # (Auto) 0.00 K/mm3 (0.0-2.0) 05/06/18 06:00 Neutrophils % (Manual) 85 % (50.0-70.0) H 04/29/18 18:12 Band Neutrophils % 2 % (0-2) 04/29/18 18:12 Lymphocytes % (Manual) 8 % (22.0-35.0) L 04/29/18 18:12 Monocytes % (Manual) 3 % (1.0-6.0) 04/29/18 18:12 Nucleated RBC % 2 % 04/29/18 18:12 Platelet Evaluation Normal (NORMAL) 04/29/18 18:12 Anisocytosis (manual) 1+ 04/29/18 18:12 PT 32.8 SECONDS (9.4-12.5) H 05/09/18 07:15 INR 2.79 05/09/18 07:15 APTT 32.1 Seconds (25.1-36.5) 05/07/18 08:45 pCO2 68 mm/Hg (35-45) H 05/09/18 06:20 pO2 114.0 mm/Hg (80-100) H 05/09/18 06:20 HCO3 55.5 mmol/L (21-28) H* 05/09/18 06:20 ABG pH 7.52 (7.35-7.45) H 05/09/18 06:20 ABG Total CO2 57.6 mmol.L (22-28) H 05/09/18 06:20 ABG O2 Saturation 99.0 % (95-98) H 05/09/18 06:20 ABG O2 Content 15.5 ML/dl (15-23) 05/09/18 06:20 ABG Base Excess 28.2 mmol/L (-2.0-3.0) H 05/09/18 06:20 ABG Hemoglobin 11.4 g/dL (11.7-17.4) L 05/09/18 06:20 ABG Carboxyhemoglobin 2.3 % (0.5-1.5) H 05/09/18 06:20 POC ABG HHb (Measured) 1.0 % (0-5) 05/09/18 06:20 ABG Methemoglobin 1.2 % (0.0-3.0) 05/09/18 06:20 ABG O2 Capacity 15.7 mL/dl (16-24) L 05/09/18 06:20 ABG Potassium 3.1 mmol/L (3.6-5.2) L 05/03/18 12:35 Hgb O2 Saturation 95.6 % (95.0-98.0) 05/09/18 06:20 Sodium 139.0 mmol/L (132-148) 05/03/18 12:35 Chloride 96.0 mmol/L (98-107) L 05/03/18 12:35 Glucose 91 mg/dl (65-105) 05/03/18 12:35 Lactate 0.7 mmol/L (0.7-2.1) 05/03/18 12:35 FiO2 32.0 % 05/09/18 06:20 Inspiratory BiPAP 16 05/03/18 12:35 Sodium 137 mmol/L (132-148) 05/09/18 07:15 Potassium 4.0 mmol/L (3.6-5.0) 05/09/18 07:15 Chloride 84 mmol/L (98-107) L 05/09/18 07:15 Carbon Dioxide 51 mmol/L (21-33) H 05/09/18 07:15 Anion Gap 6 (10-20) L 05/09/18 07:15 BUN 34 mg/dL (7-21) H 05/09/18 07:15 Creatinine 0.7 mg/dl (0.7-1.2) 05/09/18 07:15 Est GFR ( Amer) > 60 05/09/18 07:15 Est GFR (Non-Af Amer) > 60 05/09/18 07:15 POC Glucose (mg/dL) 116 mg/dL (65-110) H 05/09/18 11:01 Random Glucose 107 mg/dL (70-110) 05/09/18 07:15 Calcium 8.2 mg/dL (8.4-10.5) L 05/09/18 07:15 Phosphorus 2.9 mg/dL (2.5-4.5) 05/09/18 07:15 Magnesium 2.5 mg/dL (1.7-2.2) H 05/09/18 07:15 Total Bilirubin 0.6 mg/dL (0.2-1.3) 05/03/18 05:30 AST 24 U/L (14-36) 05/03/18 05:30 ALT 26 U/L (7-56) 05/03/18 05:30 Alkaline Phosphatase 49 U/L (38-126) 05/03/18 05:30 Total Creatine Kinase 42 U/L (35-230) 04/29/18 17:57 Troponin I 0.04 ng/mL D 05/09/18 07:15 NT-Pro-B Natriuret Pep 5110 pg/mL (0-450) H 04/29/18 17:57 Total Protein 5.4 g/dL (5.8-8.3) L 05/03/18 05:30 Albumin 2.7 g/dL (3.0-4.8) L 05/03/18 05:30 Globulin 2.8 gm/dL 05/03/18 05:30 Albumin/Globulin Ratio 1.0 (1.1-1.8) L 05/03/18 05:30 Triglycerides 108 mg/dL (35-160) 04/30/18 08:31 Cholesterol 107 mg/dL (130-200) L 04/30/18 08:31 LDL Cholesterol Direct 60 mg/dL (0-129) 04/30/18 08:31 HDL Cholesterol 27 mg/dL (29-60) L 04/30/18 08:31 Free T4 0.96 ng/dL (0.78-2.19) 04/29/18 17:57 TSH 3rd Generation 1.33 mIU/mL (0.46-4.68) 04/29/18 17:57 Arterial Blood Potassium 3.1 mmol/L (3.6-5.2) L 05/03/18 12:35 Urine Color Brown (YELLOW) 04/29/18 19:15 Urine Appearance Cloudy (CLEAR) 04/29/18 19:15 Urine pH 6.5 (4.7-8.0) 04/29/18 19:15 Ur Specific [place] >= 1.030 (1.005-1.035) 04/29/18 19:15 Urine Protein >=300 mg/dL (<30 mg/dL) H 04/29/18 19:15 Urine Glucose (UA) Negative mg/dL (NEGATIVE) 04/29/18 19:15 Urine Ketones Trace mg/dL (NEGATIVE) H 04/29/18 19:15 Urine Blood Large (NEGATIVE) H 04/29/18 19:15 Urine Nitrate Positive (NEGATIVE) H 04/29/18 19:15 Urine Bilirubin Moderate (NEGATIVE) H 04/29/18 19:15 Urine Urobilinogen 1.0 E.U./dL (<1 E.U./dL) H 04/29/18 19:15 Ur Leukocyte Esterase Trace Isabela/uL (NEGATIVE) H 04/29/18 19:15 Urine RBC Tntc /hpf (0-2) 04/29/18 19:15 Urine WBC 1 - 3 /hpf (0-6) 04/29/18 19:15 Ur Epithelial Cells 0 - 2 /hpf (0-5) 04/29/18 19:15 Urine Bacteria Mod (NEG) 04/29/18 19:15 Digoxin 0.9 ng/mL (0.8-2.0) 04/29/18 18:56 Grp A Beta Strep Ag Negative (NEGATIVE) 04/29/18 22:43 - Hospital Course Hospital Course: Upon Admission 87 year old female presented to the ED via EMS with AMS and decreased oral take. Per EMS, patient pressed life support alert and EMS responded and found patient to be covered in feces. Patient lives by herself. She was altered and unable to provide any history at this time. In ED, EKG showed afib at 132bpm with no ST changes. No prior EKG available for comparison. Trop 0.07. Aspirin given rectally. ABG shows pH 7.32 with pC02 63. CXR showed severe cardiomegaly and moderate vascular congestion. CT of head shows moderate atrophy. No acute findings. Cardizem given for elevated HR. Lasix and digoxin given. BNP was 5110. PT/INR was 48.2/4.11. U/A positive for leuk esterase and nitrates; given rocephin. Patient will be admitted to [facility]. Hospital Course Pt was treated with rocephin x 3 days due to UTI. AMS was likley due to delirium 2/2 multitude of underlying medical issues. Initially pt also had hypokalemia, hypomagnesemia, and hypophosphatemia. Electrolytes were followed and repleted throughout course of admission. Pts Afib was managed with cardizem drip and metoprolol, digoxin, warfarin. CXR on admission showed bilateral pleural effusions. CT of the chest also confirmed moderate pleural effusions and moderate pericardial effusion. Patient was started on IV lasix. Pulm was consulted to evaluate patients hypercapnia 2/2 COPD exacerbation and chronic compensated respiratory acidosis. Pt was started on IV steroids and duonebs as well as bipap during nighttime. Serial ABGs and pts mental status improved throughout course of stay after using bipap. IV steroids and lasix were switched to PO in preparation for discharge. PT/SW were involved in care throughout stay. Patient is now more alert, awake and oriented x3. Hypercapnia improved and her vitals and electrolytes are stable. Discharge Plan Pt is stable for discharge to [place] as per Dr. Adams. Instructions to monitor HCO3 and INR were given to potentially restart lasix and coumadin at facility. Patient is to resume all home medications as mentioned in discharge instructions and f/u with PMD and Mortgage Operations Manager upon d/c from facility. Patient should return to the hospital if sxs worsen or recur. Patient understands plan as above and agrees. Discharge Exam - Head Exam Head Exam: ATRAUMATIC, NORMOCEPHALIC - Eye Exam Eye Exam: EOMI - Respiratory Exam Respiratory Exam: Clear to PA & Lateral, NORMAL BREATHING PATTERN - Cardiovascular Exam Cardiovascular Exam: Systolic Murmur - GI/Abdominal Exam GI & Abdominal Exam: Soft. absent: Tenderness - Extremities Exam Extremities exam: pedal edema - Neurological Exam Neurological exam: Alert, Oriented x3 Discharge Plan - Discharge Medications Prescriptions: Albuterol/Ipratropium [Duoneb 3 mg/0.5 mg (3 ml) UD] 3 ml IH Q2H PRN 14 Days neb PRN Reason: Shortness Of Breath Ammonium Lactate 12% [Lac-Hydrin 12% Lotion (225 g)] 60 gm EXT BID #1 bottle Arformoterol [Brovana] 15 mcg IH [id number] 14 Days neb Digoxin 0.125 mg PO 1400 #14 tab Famotidine [Pepcid] 20 mg PO DAILY #14 tab Metoprolol Tartrate [Lopressor] 75 mg PO BID #28 tab - Follow Up Plan Condition: FAIR Disposition: REHAB FACILITY/REHAB UNIT Instructions: Heart Healthy Diet, Atrial Fibrillation (DC), Altered Mental Status (DC) Additional Instructions: Please take the medications as prescribed. Please complete the following blood work once a day while at facility: 1. Arterial Blood Gas: If HCO3 improves, consider beginning lasix PO 2. INR: target range: 2.0-2.5. Hold coumadin tonight, if INR improves, start standard dosing of coumadin 2.5mg Please follow up with Dr. Sewell while at the sub-acute rehabilitation facility. Please follow up with your PMD, Dr. Purvis after discharge from [facility]. Please follow up with cardiology, Dr. Woods after discharge from [facility]. If symptoms worsen, please return to the emergency department. Referrals: Maxx Woods MD [Staff Provider] - Andrei Purvis MD [Primary Care Provider] - <Duyen Adams - Last Filed: 05/09/18 17:46> Provider - Provider Date of Admission: 04/29/18 20:14 Attending physician: Duyen Adams MD Primary care physician: Andrei Purvis MD Hospital Course - Lab Results Lab Results: Micro Results 04/29/18 13:40 Blood Blood Culture - Final NO GROWTH AFTER 5 DAYS 04/29/18 13:40 Blood Gram Stain - Final TEST NOT PERFORMED 04/29/18 17:57 Blood Blood Culture - Final NO GROWTH AFTER 5 DAYS 04/29/18 17:57 Blood Gram Stain - Final TEST NOT PERFORMED 04/29/18 22:43 Throat Group A Strep Throat Culture - Final NO BETA STREP GROUP A ISOLATED. 04/29/18 19:15 Urine Urine Culture - Final No Growth (<1,000 CFU/ML) Most Recent Lab Values WBC 7.8 10^3/ul (4.5-11.0) 05/09/18 07:15 RBC 4.47 10^6/uL (3.5-6.1) 05/09/18 07:15 Hgb 12.1 g/dL (12.0-16.0) 05/09/18 07:15 Hct 38.6 % (36.0-48.0) 05/09/18 07:15 MCV 86.4 fl (80.0-105.0) 05/09/18 07:15 MCH 27.1 pg (25.0-35.0) 05/09/18 07:15 MCHC 31.3 g/dl (31.0-37.0) 05/09/18 07:15 RDW 17.5 % (11.5-14.5) H 05/09/18 07:15 Plt Count 178 10^3/uL (120.0-450.0) 05/09/18 07:15 MPV 10.0 fl (7.0-11.0) 05/09/18 07:15 Gran % 86.1 % (50.0-68.0) H 05/06/18 06:00 Lymph % (Auto) 9.1 % (22.0-35.0) L 05/06/18 06:00 [place] % (Auto) 4.7 % (1.0-6.0) 05/06/18 06:00 Eos % (Auto) 0.1 % (1.5-5.0) L 05/06/18 06:00 Baso % (Auto) 0.0 % (0.0-3.0) 05/06/18 06:00 Gran # 7.13 (1.4-6.5) H 05/06/18 06:00 Lymph # (Auto) 0.8 (1.2-3.4) L 05/06/18 06:00 [place] # (Auto) 0.4 (0.1-0.6) 05/06/18 06:00 Eos # (Auto) 0.0 (0.0-0.7) 05/06/18 06:00 Baso # (Auto) 0.00 K/mm3 (0.0-2.0) 05/06/18 06:00 Neutrophils % (Manual) 85 % (50.0-70.0) H 04/29/18 18:12 Band Neutrophils % 2 % (0-2) 04/29/18 18:12 Lymphocytes % (Manual) 8 % (22.0-35.0) L 04/29/18 18:12 Monocytes % (Manual) 3 % (1.0-6.0) 04/29/18 18:12 Nucleated RBC % 2 % 04/29/18 18:12 Platelet Evaluation Normal (NORMAL) 04/29/18 18:12 Anisocytosis (manual) 1+ 04/29/18 18:12 PT 32.8 SECONDS (9.4-12.5) H 05/09/18 07:15 INR 2.79 05/09/18 07:15 APTT 32.1 Seconds (25.1-36.5) 05/07/18 08:45 pCO2 68 mm/Hg (35-45) H 05/09/18 06:20 pO2 114.0 mm/Hg (80-100) H 05/09/18 06:20 HCO3 55.5 mmol/L (21-28) H* 05/09/18 06:20 ABG pH 7.52 (7.35-7.45) H 05/09/18 06:20 ABG Total CO2 57.6 mmol.L (22-28) H 05/09/18 06:20 ABG O2 Saturation 99.0 % (95-98) H 05/09/18 06:20 ABG O2 Content 15.5 ML/dl (15-23) 05/09/18 06:20 ABG Base Excess 28.2 mmol/L (-2.0-3.0) H 05/09/18 06:20 ABG Hemoglobin 11.4 g/dL (11.7-17.4) L 05/09/18 06:20 ABG Carboxyhemoglobin 2.3 % (0.5-1.5) H 05/09/18 06:20 POC ABG HHb (Measured) 1.0 % (0-5) 05/09/18 06:20 ABG Methemoglobin 1.2 % (0.0-3.0) 05/09/18 06:20 ABG O2 Capacity 15.7 mL/dl (16-24) L 05/09/18 06:20 ABG Potassium 3.1 mmol/L (3.6-5.2) L 05/03/18 12:35 Hgb O2 Saturation 95.6 % (95.0-98.0) 05/09/18 06:20 Sodium 139.0 mmol/L (132-148) 05/03/18 12:35 Chloride 96.0 mmol/L (98-107) L 05/03/18 12:35 Glucose 91 mg/dl (65-105) 05/03/18 12:35 Lactate 0.7 mmol/L (0.7-2.1) 05/03/18 12:35 FiO2 32.0 % 05/09/18 06:20 Inspiratory BiPAP 16 05/03/18 12:35 Sodium 137 mmol/L (132-148) 05/09/18 07:15 Potassium 4.0 mmol/L (3.6-5.0) 05/09/18 07:15 Chloride 84 mmol/L (98-107) L 05/09/18 07:15 Carbon Dioxide 51 mmol/L (21-33) H 05/09/18 07:15 Anion Gap 6 (10-20) L 05/09/18 07:15 BUN 34 mg/dL (7-21) H 05/09/18 07:15 Creatinine 0.7 mg/dl (0.7-1.2) 05/09/18 07:15 Est GFR ( Amer) > 60 05/09/18 07:15 Est GFR (Non-Af Amer) > 60 05/09/18 07:15 POC Glucose (mg/dL) 116 mg/dL (65-110) H 05/09/18 11:01 Random Glucose 107 mg/dL (70-110) 05/09/18 07:15 Calcium 8.2 mg/dL (8.4-10.5) L 05/09/18 07:15 Phosphorus 2.9 mg/dL (2.5-4.5) 05/09/18 07:15 Magnesium 2.5 mg/dL (1.7-2.2) H 05/09/18 07:15 Total Bilirubin 0.6 mg/dL (0.2-1.3) 05/03/18 05:30 AST 24 U/L (14-36) 05/03/18 05:30 ALT 26 U/L (7-56) 05/03/18 05:30 Alkaline Phosphatase 49 U/L (38-126) 05/03/18 05:30 Total Creatine Kinase 42 U/L (35-230) 04/29/18 17:57 Troponin I 0.04 ng/mL D 05/09/18 07:15 NT-Pro-B Natriuret Pep 5110 pg/mL (0-450) H 04/29/18 17:57 Total Protein 5.4 g/dL (5.8-8.3) L 05/03/18 05:30 Albumin 2.7 g/dL (3.0-4.8) L 05/03/18 05:30 Globulin 2.8 gm/dL 05/03/18 05:30 Albumin/Globulin Ratio 1.0 (1.1-1.8) L 05/03/18 05:30 Triglycerides 108 mg/dL (35-160) 04/30/18 08:31 Cholesterol 107 mg/dL (130-200) L 04/30/18 08:31 LDL Cholesterol Direct 60 mg/dL (0-129) 04/30/18 08:31 HDL Cholesterol 27 mg/dL (29-60) L 04/30/18 08:31 Free T4 0.96 ng/dL (0.78-2.19) 04/29/18 17:57 TSH 3rd Generation 1.33 mIU/mL (0.46-4.68) 04/29/18 17:57 Arterial Blood Potassium 3.1 mmol/L (3.6-5.2) L 05/03/18 12:35 Urine Color Brown (YELLOW) 04/29/18 19:15 Urine Appearance Cloudy (CLEAR) 04/29/18 19:15 Urine pH 6.5 (4.7-8.0) 04/29/18 19:15 Ur Specific [place] >= 1.030 (1.005-1.035) 04/29/18 19:15 Urine Protein >=300 mg/dL (<30 mg/dL) H 04/29/18 19:15 Urine Glucose (UA) Negative mg/dL (NEGATIVE) 04/29/18 19:15 Urine Ketones Trace mg/dL (NEGATIVE) H 04/29/18 19:15 Urine Blood Large (NEGATIVE) H 04/29/18 19:15 Urine Nitrate Positive (NEGATIVE) H 04/29/18 19:15 Urine Bilirubin Moderate (NEGATIVE) H 04/29/18 19:15 Urine Urobilinogen 1.0 E.U./dL (<1 E.U./dL) H 04/29/18 19:15 Ur Leukocyte Esterase Trace Isabela/uL (NEGATIVE) H 04/29/18 19:15 Urine RBC Tntc /hpf (0-2) 04/29/18 19:15 Urine WBC 1 - 3 /hpf (0-6) 04/29/18 19:15 Ur Epithelial Cells 0 - 2 /hpf (0-5) 04/29/18 19:15 Urine Bacteria Mod (NEG) 04/29/18 19:15 Digoxin 0.9 ng/mL (0.8-2.0) 04/29/18 18:56 Grp A Beta Strep Ag Negative (NEGATIVE) 04/29/18 22:43 Discharge Exam - Respiratory Exam Respiratory Exam: absent: Rhonchi, Wheezes - Cardiovascular Exam Cardiovascular Exam: Irregular Rhythm, +S1, +S2 - GI/Abdominal Exam GI & Abdominal Exam: Normal Bowel Sounds. absent: Organomegaly Discharge Plan - Follow Up Plan Patient education suggested?: Yes Attending/Attestation - Attestation I have personally seen and examined this patient.: Yes I have fully participated in the care of the patient.: Yes I have reviewed all pertinent clinical information, including history, physical exam and plan: Yes Notes (Text): 05/09/18 17:42 87 year old female with past medical history of CHF, afib, hypertension and COPD who presented with altered mental status. She was found to have Afib with RVR and acute on chronic diastolic CHF exacerbation. She was started on iv lasix an d is also on digoxin, metoprolol and coumadin. Hospital course was also complicated with hypercapneic respiratory distress / COPD last week. Patient was started on bipap HS which she refused last night. CO2 retention improved. However remains with metabolic alkalosis. Case was discussed with both pulmonary and cardiology who recommended to hold lasix for now with serial bmp/ABG. Patient is on duonebs, brovana, po steroids and pulmicort. She was also given rocephin x 3 days for possible UTI. UCx is negative. Palliative care evaluation was appreciated as well. Patient is DNR/DNI. P rognosis is guarded. Patient is discharged to [facility]. She was refused by LTACH. Recommended to monitor BMP and ABG; consider resuming lasix if metabolic alkalosis improves. Hold coumadin tonight and repeat INR in AM. INR target 2-2.5 per cardiology. Encourage BIPAP HS. Follow up with pmd, cardiology and pulmonary after discharge. Duyen Adams MD Hospitalist.
== END 2018-05-09 18:23 | DRG 291 ==
LOC: ED 13:45 → ERH 20:14 → 2RNO 04-30 00:19
PROVIDERS: ADMIT Internal Medicine; ATTEND Internal Medicine
PROC: 3E0F7GC Introduction of Other Therapeutic Substance into Respiratory Tract, Via Natural or Artificial Opening (ICD-10-PCS; 2018-05-03)
PROC: 5A09457 Assistance with Respiratory Ventilation, 24-96 Consecutive Hours, Continuous Positive Airway Pressure (ICD-10-PCS; principal; 2018-05-05)
DX: I11.0 Hypertensive heart disease with heart failure (principal); J96.92 Respiratory failure, unspecified with hypercapnia; I50.43 Acute on chronic combined systolic (congestive) and diastolic (congestive) heart failure; J44.1 Chronic obstructive pulmonary disease with (acute) exacerbation; N39.0 Urinary tract infection, site not specified; I31.3 Pericardial effusion (noninflammatory); E87.4 Mixed disorder of acid-base balance; R62.7 Adult failure to thrive; E86.0 Dehydration; E87.5 Hyperkalemia; I27.20 Pulmonary hypertension, unspecified; I48.2 Chronic atrial fibrillation; F03.90 Unspecified dementia, unspecified severity, without behavioral disturbance, psychotic disturbance, mood disturbance, and anxiety; H35.30 Unspecified macular degeneration; I08.2 Rheumatic disorders of both aortic and tricuspid valves; E03.9 Hypothyroidism, unspecified; E87.6 Hypokalemia; E83.42 Hypomagnesemia; E83.39 Other disorders of phosphorus metabolism; Z79.01 Long term (current) use of anticoagulants; Z87.891 Personal history of nicotine dependence